=== PATIENT | female | born 1980 | race Caucasian/White ===

== ENCOUNTER → 2016-06-13 | Outpatient (CLI) | payer MEDICAID ==
[~2016-06-13] MED LIST: CHOL20007 PO; LENA5CAP PO; LEV500T PO; NOR5T PO; TRAZ100T2 PO
== END | disposition home or self-care (01) ==
LOC: LAB 11:48
DX: Z00.00 Encounter for general adult medical examination without abnormal findings (principal)
CPT/HCPCS: 81025

== ENCOUNTER → 2016-07-11 | Outpatient (CLI) | payer MEDICAID | END | disposition home or self-care (01) | LOC: LAB 11:00 | DX: Z00.00 Encounter for general adult medical examination without abnormal findings (principal) | CPT/HCPCS: 81025 ==

== ENCOUNTER → 2016-08-08 | Outpatient (CLI) | payer MEDICAID | END | disposition home or self-care (01) | LOC: LAB 08:43 | DX: Z00.00 Encounter for general adult medical examination without abnormal findings (principal) | CPT/HCPCS: 81025 ==

== ENCOUNTER → 2016-09-05 | Outpatient (CLI) | payer MEDICAID | END | disposition home or self-care (01) | LOC: LAB 10:29 | DX: C90.00 Multiple myeloma not having achieved remission (principal) | CPT/HCPCS: 81025 ==

== ENCOUNTER → 2016-10-01 | Outpatient (CLI) | payer MEDICAID | END | disposition home or self-care (01) | LOC: LAB 10:51 | DX: C90.00 Multiple myeloma not having achieved remission (principal) | CPT/HCPCS: 81025 ==

== ENCOUNTER → 2016-10-31 | Outpatient (CLI) | payer MEDICAID ==
[~2016-10-31] MED LIST changes: +HYDR-4663 PO; -NOR5T PO
== END | disposition home or self-care (01) ==
LOC: LAB 10:51
DX: C90.00 Multiple myeloma not having achieved remission (principal)
CPT/HCPCS: 81025

== ENCOUNTER → 2016-11-03 | Outpatient (CLI) | payer MEDICAID ==
[2016-11-03 08:30] LABS: Basophils # (auto) 0 uL; Basophils % (auto) 0.7 % (0.0-2.0); Eosinophils # (auto) 0.4 uL; Eosinophils % (auto) 9.8 % (0.0-7.0); Hematocrit 36.8 % (36.0-46.0); Hemoglobin 12.9 g/dL (12.2-16.2); Lymphocytes # (auto) 1.2 uL; Lymphocytes % (auto) 32.6 % (10.0-50.0); Mean Corpuscular Hemoglobin 30.6 pg (28.0-32.0); Mean Corpuscular Hgb Conc. 34.9 g/dL (32.0-36.0); Mean Corpuscular Volume 87.8 fL (80.0-100.0); Mean Platelet Volume 8.5 fL (7.4-10.4); Monocytes # (auto) 0.4 uL; Monocytes % (auto) 10.8 % (0.0-12.0); Neutrophils # (auto) 1.7 uL; Neutrophils % (auto) 46.1 % (37.0-80.0); Platelet Count (auto) 230 10^3/uL (140-450); Red Cell Distribution Width 14.4 % (11.6-16.0); White Blood Cell 3.8 10^3/uL (4.4-10.8)
[2016-11-03 09:02] LABS: BUN/Creatinine Ratio 18.8; Calcium 9.2 mg/dL (8.5-10.1); Phosphorus 3.4 mg/dL (2.5-4.90)
[2016-11-03 09:06] LABS: Urine Bilirubin Negative (Negative); Urine Color Yellow (Yellow); Urine Glucose TRACE mg/dL (Normal); Urine Ketone Negative (Negative); Urine Nitrite Negative (Negative); Urine Urobilinogen Normal (Negative); Urine pH 5.5 (5.0-8.0)
[2016-11-03 09:26] LABS: Urine Blood 1+ /uL (Negative)
[2016-11-03 10:49] LABS: Urine Protein/Creatinine Ratio 0.78
== END | disposition home or self-care (01) ==
LOC: LAB 08:00
PROVIDERS: ATTEND Internal Medicine
DX: N18.3 Chronic kidney disease, stage 3 (moderate) (principal); D63.1 Anemia in chronic kidney disease; M10.9 Gout, unspecified; R80.9 Proteinuria, unspecified
CPT/HCPCS: 36415; 80061; 80069; 81003; 82306; 82570; 84156; 85025

== ENCOUNTER → 2016-11-28 | Outpatient (CLI) | payer MEDICAID | END | disposition home or self-care (01) | LOC: LAB 10:11 | DX: C90.00 Multiple myeloma not having achieved remission (principal) | CPT/HCPCS: 81025 ==

== ENCOUNTER → 2016-12-26 | Outpatient (CLI) | payer MEDICAID | END | disposition home or self-care (01) | LOC: LAB 09:45 | DX: C90.00 Multiple myeloma not having achieved remission (principal) | CPT/HCPCS: 81025 ==

== ENCOUNTER → 2017-01-23 | Outpatient (CLI) | payer MEDICAID | END | disposition home or self-care (01) | LOC: LAB 10:02 | DX: C90.00 Multiple myeloma not having achieved remission (principal) | CPT/HCPCS: 81025 ==

== ENCOUNTER → 2017-02-20 | Outpatient (CLI) | payer MEDICAID | END | disposition home or self-care (01) | LOC: LAB 11:37 | DX: C90.00 Multiple myeloma not having achieved remission (principal) | CPT/HCPCS: 81025 ==

== ENCOUNTER → 2017-03-20 | Outpatient (CLI) | payer MEDICAID ==
[~2017-03-20] MED LIST changes: -HYDR-4663 PO; +HYDR-4683 PO
== END | disposition home or self-care (01) ==
LOC: LAB 11:11
DX: C90.00 Multiple myeloma not having achieved remission (principal)
CPT/HCPCS: 81025

== ENCOUNTER → 2017-04-20 | Outpatient (CLI) | payer MEDICAID | END | disposition home or self-care (01) | LOC: LAB 10:11 | DX: Z32.00 Encounter for pregnancy test, result unknown (principal); C90.00 Multiple myeloma not having achieved remission | CPT/HCPCS: 81025 ==

== ENCOUNTER → 2017-05-04 | Outpatient (CLI) | payer MEDICAID ==
[2017-05-04 09:05] LABS: Basophils # (auto) 0 uL; Basophils % (auto) 1.1 % (0.0-2.0); Eosinophils # (auto) 0.3 uL; Eosinophils % (auto) 6.5 % (0.0-7.0); Hematocrit 37.9 % (36.0-46.0); Hemoglobin 12.9 g/dL (12.2-16.2); Lymphocytes # (auto) 1.3 uL; Lymphocytes % (auto) 31.9 % (10.0-50.0); Mean Corpuscular Hemoglobin 30.7 pg (28.0-32.0); Mean Corpuscular Volume 90.5 fL (80.0-100.0); Mean Platelet Volume 8.2 fL (6.9-10.8); Monocytes # (auto) 0.2 uL; Monocytes % (auto) 5.5 % (0.0-12.0); Neutrophils # (auto) 2.2 uL; Nucleated Red Blood Cells % 0.1 %; Platelet Count (auto) 214 10^3/uL (140-450)
[2017-05-04 09:17] LABS: Urine Bilirubin Negative (Negative); Urine Blood 1+ /uL (Negative); Urine Color Yellow (Yellow); Urine Glucose 1+ mg/dL (Normal); Urine Ketone Negative (Negative); Urine Mucus FEW (None Seen); Urine Nitrite Negative (Negative); Urine RBC <1 /hpf (0 - 4); Urine Squamous Epithelial Cell FEW /hpf (<5); Urine Urobilinogen Normal (Negative); Urine pH 5.5 (5.0-8.0)
[2017-05-04 09:33] LABS: Urine Protein/Creatinine Ratio 0.97
[2017-05-04 09:34] LABS: Albumin 3.9 g/dL (3.4-5.0); BUN/Creatinine Ratio 18.3; Calcium 9.4 mg/dL (8.5-10.1); Phosphorus 3.6 mg/dL (2.5-4.90); Potassium 3.8 mmol/L (3.5-5.1); Uric Acid 4.7 mg/dL (2.6-6.0)
== END | disposition home or self-care (01) ==
LOC: LAB 08:44
PROVIDERS: ATTEND Internal Medicine
DX: N18.3 Chronic kidney disease, stage 3 (moderate) (principal); D63.1 Anemia in chronic kidney disease; E21.3 Hyperparathyroidism, unspecified; E78.5 Hyperlipidemia, unspecified; M10.9 Gout, unspecified; E55.9 Vitamin D deficiency, unspecified; R80.9 Proteinuria, unspecified
CPT/HCPCS: 36415; 80069; 81001; 82306; 82570; 84156; 84550; 85025

== ENCOUNTER 2017-07-27 12:19 | Emergency (ER) | payer MEDICAID ==
[~2017-07-27] VITALS: Ht 160 cm; Wt 95.3 kg
[2017-07-27 13:07] LABS: Basophils # (auto) 0 uL; Basophils % (auto) 0.6 % (0.0-2.0); Eosinophils # (auto) 0.1 uL; Eosinophils % (auto) 2.6 % (0.0-7.0); Hematocrit 38.8 % (36.0-46.0); Hemoglobin 13.1 g/dL (12.2-16.2); Lymphocytes # (auto) 1.1 uL; Lymphocytes % (auto) 28.2 % (10.0-50.0); Mean Corpuscular Hemoglobin 30.8 pg (28.0-32.0); Mean Corpuscular Hgb Conc. 33.7 g/dL (32.0-36.0); Mean Corpuscular Volume 91.2 fL (80.0-100.0); Monocytes # (auto) 0.7 uL; Monocytes % (auto) 16.9 % (0.0-12.0); Neutrophils # (auto) 2.1 uL; Neutrophils % (auto) 51.7 % (37.0-80.0); Nucleated Red Blood Cells % 0.2 %; Platelet Count (auto) 252 10^3/uL (140-450); Red Blood Cells 4.25 10^6/uL (4.0-5.20)
[2017-07-27 13:23] LABS: Albumin 3.9 g/dL (3.4-5.0); BUN/Creatinine Ratio 17.5; Bilirubin, Total 0.4 mg/dL (0.2-1.0); Potassium 3.6 mmol/L (3.5-5.1); Total Protein 7.7 g/dL (6.4-8.2)
[2017-07-27 15:05] VITALS: BP 144/98
[2017-07-27 16:36] LABS: Urine Bacteria FEW /hpf (None Seen); Urine Blood 1+ /uL (Negative); Urine Specific Gravity 1.019 (1.001-1.035); Urine WBC 4 /hpf (0 - 5)
== END 2017-07-27 16:37 | disposition home or self-care (01) ==
LOC: ER 12:19
DX: C90.00 Multiple myeloma not having achieved remission (principal); D63.8 Anemia in other chronic diseases classified elsewhere
CPT/HCPCS: 36415; 80053; 81001; 85025

== ENCOUNTER → 2022-01-29 | Outpatient (CLI) | payer MEDICAID ==
[~2022-01-29] MED LIST changes: -HYDR-4683 PO; +HYDR-4833 PO; -TRAZ100T2 PO; +TRAZ100T3 PO
[2022-01-29 08:34] LABS: Basophils # (auto) 0 10 ^3/uL (0-0.2); Basophils % (auto) 0.9 % (0.0-2.0); Eosinophils # (auto) 0.4 10 ^3/uL (0-0.8); Hematocrit 39.6 % (36.0-46.0); Hemoglobin 12.9 g/dL (12.2-16.2); Lymphocytes # (auto) 1.4 10 ^3/uL (0.4-5.4); Lymphocytes % (auto) 28.1 % (10.0-50.0); Mean Corpuscular Hemoglobin 29.5 pg (28.0-32.0); Mean Corpuscular Hgb Conc. 32.7 g/dL (32.0-36.0); Mean Corpuscular Volume 90.1 fL (80.0-100.0); Monocytes # (auto) 0.5 10 ^3/uL (0-1.3); Monocytes % (auto) 9.9 % (0.0-12.0); Neutrophils # (auto) 2.8 10 ^3/uL (1.6-8.6); Neutrophils % (auto) 54.1 % (37.0-80.0); Red Blood Cells 4.39 10^6/uL (4.0-5.20); Red Cell Distribution Width 14.8 % (11.8-14.3); White Blood Cell 5.2 10^3/uL (4.4-10.8)
[2022-01-29 09:43] LABS: Albumin 3.7 g/dL (3.4-5.0); Calcium 9.1 mg/dL (8.5-10.1); Potassium 4.3 mmol/L (3.5-5.1)
[2022-01-29 09:49] LABS: BUN/Creatinine Ratio 17.7; Bilirubin, Total 0.9 mg/dL (0.2-1.0); Total Protein 6.5 g/dL (6.4-8.2)
== END | disposition home or self-care (01) ==
LOC: LAB 08:10
PROVIDERS: ATTEND Nurse Practitioner Family
DX: Z00.00 Encounter for general adult medical examination without abnormal findings (principal); E11.9 Type 2 diabetes mellitus without complications; I10 Essential (primary) hypertension
CPT/HCPCS: 36415; 80053; 80061; 83036; 84443; 85025

== ENCOUNTER → 2022-03-11 | Outpatient (CLI) | payer MEDICAID ==
[2022-03-11 13:06] LABS: Basophils # (auto) 0.1 10 ^3/uL (0-0.2); Basophils % (auto) 1.3 % (0.0-2.0); Eosinophils # (auto) 0.2 10 ^3/uL (0-0.8); Eosinophils % (auto) 5.4 % (0.0-7.0); Hematocrit 38.6 % (36.0-46.0); Hemoglobin 12.9 g/dL (12.2-16.2); Lymphocytes # (auto) 1.6 10 ^3/uL (0.4-5.4); Lymphocytes % (auto) 35.3 % (10.0-50.0); Mean Corpuscular Hemoglobin 29.8 pg (28.0-32.0); Mean Corpuscular Hgb Conc. 33.3 g/dL (32.0-36.0); Mean Corpuscular Volume 89.4 fL (80.0-100.0); Monocytes # (auto) 0.7 10 ^3/uL (0-1.3); Monocytes % (auto) 14.2 % (0.0-12.0); Neutrophils % (auto) 43.8 % (37.0-80.0); Nucleated Red Blood Cells % 0.1 %; Red Blood Cells 4.32 10^6/uL (4.0-5.20); White Blood Cell 4.6 10^3/uL (4.4-10.8)
[2022-03-11 13:18] LABS: Urine Bacteria NONE SEEN /hpf (None Seen); Urine Blood 1+ /uL (Negative); Urine Specific Gravity 1.016 (1.001-1.035); Urine WBC 5 /hpf (0 - 5)
[2022-03-11 13:46] LABS: Creatinine, Urine 75.1 mg/dL (30.0-125.0); Protein, Urine 58.7 mg/dL (0.0-11.9)
[2022-03-11 13:47] LABS: Albumin 3.4 g/dL (3.4-5.0); BUN/Creatinine Ratio 15.3; Calcium 8.6 mg/dL (8.5-10.1); Phosphorus 2.6 mg/dL (2.5-4.90); Potassium 3.8 mmol/L (3.5-5.1); Uric Acid 4.3 mg/dL (2.6-6.0)
== END | disposition home or self-care (01) ==
LOC: LAB 12:34
PROVIDERS: ATTEND Internal Medicine
DX: C90.01 Multiple myeloma in remission (principal); N18.31 Chronic kidney disease, stage 3a; D63.1 Anemia in chronic kidney disease; E21.3 Hyperparathyroidism, unspecified; E78.5 Hyperlipidemia, unspecified; M10.9 Gout, unspecified; R80.9 Proteinuria, unspecified; R89.0 Abnormal level of enzymes in specimens from other organs, systems and tissues; R82.90 Unspecified abnormal findings in urine
CPT/HCPCS: 36415; 80069; 81001; 82306; 82570; 83970; 84156; 84550; 84702; 85025

== ENCOUNTER → 2022-03-19 | Outpatient (CLI) | payer MEDICAID | END | disposition home or self-care (01) | LOC: LAB 14:30 | PROVIDERS: ATTEND Internal Medicine | DX: C90.01 Multiple myeloma in remission (principal) | CPT/HCPCS: 36415; 84702 ==

== ENCOUNTER → 2022-03-31 | Outpatient (CLI) | payer MEDICAID | END | disposition home or self-care (01) | LOC: LAB 10:05 | PROVIDERS: ATTEND Internal Medicine | DX: C90.01 Multiple myeloma in remission (principal) | CPT/HCPCS: 36415; 84702 ==

== ENCOUNTER → 2022-04-15 | Outpatient (CLI) | payer MEDICAID ==
[2022-04-15 11:37] LABS: Basophils # (auto) 0.1 10 ^3/uL (0-0.2); Basophils % (auto) 1.1 % (0.0-2.0); Eosinophils # (auto) 0.3 10 ^3/uL (0-0.8); Eosinophils % (auto) 5.5 % (0.0-7.0); Hematocrit 40.9 % (36.0-46.0); Hemoglobin 13.6 g/dL (12.2-16.2); Lymphocytes # (auto) 1.6 10 ^3/uL (0.4-5.4); Lymphocytes % (auto) 29.1 % (10.0-50.0); Mean Corpuscular Hemoglobin 29.5 pg (28.0-32.0); Mean Corpuscular Hgb Conc. 33.1 g/dL (32.0-36.0); Mean Corpuscular Volume 89.2 fL (80.0-100.0); Monocytes # (auto) 0.4 10 ^3/uL (0-1.3); Monocytes % (auto) 7.8 % (0.0-12.0); Neutrophils % (auto) 56.5 % (37.0-80.0); Nucleated Red Blood Cells % 0.1 %; Red Blood Cells 4.59 10^6/uL (4.0-5.20); Red Cell Distribution Width 14.1 % (11.8-14.3); White Blood Cell 5.4 10^3/uL (4.4-10.8)
[2022-04-15 13:51] LABS: Albumin 3.6 g/dL (3.4-5.0); Bilirubin, Total 0.8 mg/dL (0.2-1.0); Calcium 9.4 mg/dL (8.5-10.1); Potassium 3.9 mmol/L (3.5-5.1); Total Protein 7.1 g/dL (6.4-8.2); Uric Acid 5.3 mg/dL (2.6-6.0)
[2022-04-16 07:06] LABS: Immunoglobulin G, Serum 602 mg/dL (586-1602)
== END | disposition home or self-care (01) ==
LOC: LAB 11:17
PROVIDERS: ATTEND Internal Medicine
DX: C90.01 Multiple myeloma in remission (principal)
CPT/HCPCS: 36415; 80053; 82784; 83615; 83883; 84155; 84165; 84550; 85025

== ENCOUNTER → 2022-04-25 | Outpatient (CLI) | payer MEDICAID | END | disposition home or self-care (01) | LOC: LAB 10:24 | PROVIDERS: ATTEND Internal Medicine | DX: C90.01 Multiple myeloma in remission (principal) | CPT/HCPCS: 36415; 84702 ==

== ENCOUNTER → 2022-05-21 | Outpatient (CLI) | payer MEDICAID | END | disposition home or self-care (01) | LOC: LAB 13:04 | PROVIDERS: ATTEND Internal Medicine | DX: C90.01 Multiple myeloma in remission (principal) | CPT/HCPCS: 36415; 84702 ==

== ENCOUNTER → 2022-06-10 | Outpatient (CLI) | payer MEDICAID ==
[2022-06-10 12:30] LABS: Basophils # (auto) 0 10 ^3/uL (0-0.2); Basophils % (auto) 1.1 % (0.0-2.0); Eosinophils # (auto) 0.3 10 ^3/uL (0-0.8); Eosinophils % (auto) 9.1 % (0.0-7.0); Hematocrit 40.4 % (36.0-46.0); Hemoglobin 13.2 g/dL (12.2-16.2); Lymphocytes # (auto) 1.4 10 ^3/uL (0.4-5.4); Lymphocytes % (auto) 37.3 % (10.0-50.0); Mean Corpuscular Hemoglobin 29.1 pg (28.0-32.0); Mean Corpuscular Hgb Conc. 32.8 g/dL (32.0-36.0); Mean Corpuscular Volume 88.7 fL (80.0-100.0); Monocytes # (auto) 0.4 10 ^3/uL (0-1.3); Monocytes % (auto) 11.6 % (0.0-12.0); Neutrophils # (auto) 1.5 10 ^3/uL (1.6-8.6); Neutrophils % (auto) 40.9 % (37.0-80.0); Nucleated Red Blood Cells % 0.1 %; Red Blood Cells 4.55 10^6/uL (4.0-5.20); Red Cell Distribution Width 14.8 % (11.8-14.3); White Blood Cell 3.7 10^3/uL (4.4-10.8)
[2022-06-10 13:06] LABS: Albumin 3.5 g/dL (3.4-5.0); BUN/Creatinine Ratio 17.2; Calcium 9.6 mg/dL (8.5-10.1); Potassium 4.1 mmol/L (3.5-5.1)
[2022-06-10 13:09] LABS: Bilirubin, Total 0.6 mg/dL (0.2-1.0); Total Protein 7.1 g/dL (6.4-8.2)
[2022-06-11 08:06] LABS: Immunoglobulin G, Serum 902 mg/dL (586-1602)
[2022-06-11 21:16] LABS: Uric Acid 5.3 mg/dL (2.6-6.0)
== END | disposition home or self-care (01) ==
LOC: LAB 12:10
PROVIDERS: ATTEND Internal Medicine
DX: C90.01 Multiple myeloma in remission (principal)
CPT/HCPCS: 36415; 80053; 82784; 83615; 83883; 84550; 85025

== ENCOUNTER → 2022-06-30 | Outpatient (CLI) | payer MEDICAID | END | disposition home or self-care (01) | LOC: LAB 09:14 | PROVIDERS: ATTEND Internal Medicine | DX: C90.01 Multiple myeloma in remission (principal) | CPT/HCPCS: 36415; 84702 ==

== ENCOUNTER → 2022-07-07 | Outpatient (CLI) | payer MEDICAID | END | disposition home or self-care (01) | LOC: LAB 09:58 | PROVIDERS: ATTEND Internal Medicine | DX: C90.01 Multiple myeloma in remission (principal) | CPT/HCPCS: 36415; 84702 ==

== ENCOUNTER → 2022-08-01 | Outpatient (CLI) | payer MEDICAID ==
[2022-08-01 10:38] LABS: Basophils # (auto) 0 10 ^3/uL (0-0.2); Basophils % (auto) 0.9 % (0.0-2.0); Eosinophils # (auto) 0.4 10 ^3/uL (0-0.8); Eosinophils % (auto) 9.3 % (0.0-7.0); Hematocrit 38.1 % (36.0-46.0); Hemoglobin 12.7 g/dL (12.2-16.2); Lymphocytes # (auto) 1.1 10 ^3/uL (0.4-5.4); Lymphocytes % (auto) 25.3 % (10.0-50.0); Mean Corpuscular Hemoglobin 29.9 pg (28.0-32.0); Mean Corpuscular Hgb Conc. 33.4 g/dL (32.0-36.0); Mean Corpuscular Volume 89.6 fL (80.0-100.0); Monocytes # (auto) 0.3 10 ^3/uL (0-1.3); Monocytes % (auto) 7.6 % (0.0-12.0); Neutrophils # (auto) 2.4 10 ^3/uL (1.6-8.6); Neutrophils % (auto) 56.9 % (37.0-80.0); Nucleated Red Blood Cells % 0.4 %; Red Blood Cells 4.26 10^6/uL (4.0-5.20); Red Cell Distribution Width 15.7 % (11.8-14.3); White Blood Cell 4.3 10^3/uL (4.4-10.8)
[2022-08-01 12:42] LABS: Albumin 3.4 g/dL (3.4-5.0); BUN/Creatinine Ratio 15.6; Calcium 9.5 mg/dL (8.5-10.1); Potassium 3.9 mmol/L (3.5-5.1)
[2022-08-01 12:47] LABS: Beta HCG, Quantitative 1 mlU/mL (1-3)
[2022-08-01 12:58] LABS: Bilirubin, Total 0.9 mg/dL (0.2-1.0); Total Protein 7.2 g/dL (6.4-8.2)
[2022-08-01 14:59] LABS: Uric Acid 5.1 mg/dL (2.6-6.0)
[2022-08-01 15:50] LABS: Lactate Dehydrogenase 193 U/L (84-246)
[2022-08-02 07:06] LABS: Immunoglobulin G, Serum 942 mg/dL (586-1602)
== END | disposition home or self-care (01) ==
LOC: LAB 10:21
PROVIDERS: ATTEND Internal Medicine
DX: C90.01 Multiple myeloma in remission (principal)
CPT/HCPCS: 36415; 80053; 82784; 83615; 83883; 84155; 84165; 84550; 84702; 85025

== ENCOUNTER → 2022-08-11 | Outpatient (CLI) | payer MEDICAID | END | disposition home or self-care (01) | LOC: LAB 10:38 | PROVIDERS: ATTEND Internal Medicine | DX: C90.01 Multiple myeloma in remission (principal) | CPT/HCPCS: 36415; 84702 ==

== ENCOUNTER → 2022-09-05 | Outpatient (CLI) | payer MEDICAID ==
[2022-09-05 09:07] LABS: Basophils # (auto) 0.1 10 ^3/uL (0-0.2); Eosinophils # (auto) 0.2 10 ^3/uL (0-0.8); Eosinophils % (auto) 3.1 % (0.0-7.0); Hematocrit 38.7 % (36.0-46.0); Hemoglobin 13.2 g/dL (12.2-16.2); Lymphocytes # (auto) 1.9 10 ^3/uL (0.4-5.4); Lymphocytes % (auto) 35.7 % (10.0-50.0); Mean Corpuscular Hemoglobin 30.8 pg (28.0-32.0); Mean Corpuscular Hgb Conc. 34.1 g/dL (32.0-36.0); Mean Corpuscular Volume 90.5 fL (80.0-100.0); Monocytes # (auto) 0.7 10 ^3/uL (0-1.3); Monocytes % (auto) 13.6 % (0.0-12.0); Neutrophils # (auto) 2.4 10 ^3/uL (1.6-8.6); Neutrophils % (auto) 45.6 % (37.0-80.0); Red Blood Cells 4.28 10^6/uL (4.0-5.20); Red Cell Distribution Width 14.9 % (11.8-14.3); White Blood Cell 5.2 10^3/uL (4.4-10.8)
[2022-09-05 09:08] LABS: Urine Bacteria NONE SEEN /hpf (None Seen); Urine Blood 1+ /uL (Negative); Urine Specific Gravity 1.017 (1.001-1.035); Urine WBC 6 /hpf (0 - 5)
[2022-09-05 09:49] LABS: Albumin 3.4 g/dL (3.4-5.0); BUN/Creatinine Ratio 19.6 (10.0-20.0); Calcium 9.6 mg/dL (8.5-10.1); Phosphorus 3.7 mg/dL (2.5-4.90); Potassium 4.4 mmol/L (3.5-5.1); Uric Acid 5.4 mg/dL (2.6-6.0)
[2022-09-05 09:52] LABS: Protein, Urine 65.5 mg/dL (0.0-11.9)
== END | disposition home or self-care (01) ==
LOC: LAB 08:42
PROVIDERS: ATTEND Internal Medicine
DX: N18.31 Chronic kidney disease, stage 3a (principal); D63.1 Anemia in chronic kidney disease; E78.5 Hyperlipidemia, unspecified; E21.3 Hyperparathyroidism, unspecified; M10.9 Gout, unspecified; R80.9 Proteinuria, unspecified; R82.90 Unspecified abnormal findings in urine
CPT/HCPCS: 36415; 80069; 81001; 82306; 82570; 83970; 84156; 84550; 84702; 85025

== ENCOUNTER → 2022-10-13 | Outpatient (CLI) | payer MEDICAID ==
[2022-10-13 12:45] LABS: Basophils # (auto) 0.1 10 ^3/uL (0-0.2); Basophils % (auto) 0.9 % (0.0-2.0); Eosinophils # (auto) 0.3 10 ^3/uL (0-0.8); Eosinophils % (auto) 5.3 % (0.0-7.0); Hematocrit 42.3 % (36.0-46.0); Hemoglobin 14.2 g/dL (12.2-16.2); Lymphocytes # (auto) 2.1 10 ^3/uL (0.4-5.4); Lymphocytes % (auto) 33.6 % (10.0-50.0); Mean Corpuscular Hemoglobin 30.6 pg (28.0-32.0); Mean Corpuscular Hgb Conc. 33.6 g/dL (32.0-36.0); Monocytes # (auto) 0.6 10 ^3/uL (0-1.3); Monocytes % (auto) 8.8 % (0.0-12.0); Neutrophils # (auto) 3.3 10 ^3/uL (1.6-8.6); Neutrophils % (auto) 51.4 % (37.0-80.0); Nucleated Red Blood Cells % 0.1 %; Red Blood Cells 4.65 10^6/uL (4.0-5.20); Red Cell Distribution Width 14.7 % (11.8-14.3); White Blood Cell 6.3 10^3/uL (4.4-10.8)
[2022-10-13 14:20] LABS: Albumin 4.2 g/dL (3.4-5.0); BUN/Creatinine Ratio 13.8 (10.0-20.0); Bilirubin, Total 0.8 mg/dL (0.2-1.0); Calcium 9.6 mg/dL (8.5-10.1); Potassium 3.8 mmol/L (3.5-5.1); Total Protein 8.2 g/dL (6.4-8.2); Uric Acid 5.6 mg/dL (2.6-6.0)
[2022-10-14 08:07] LABS: Immunoglobulin G, Serum 985 mg/dL (586-1602)
== END | disposition home or self-care (01) ==
LOC: LAB 12:18
PROVIDERS: ATTEND Internal Medicine
DX: C90.01 Multiple myeloma in remission (principal)
CPT/HCPCS: 36415; 80053; 82784; 83615; 83883; 84155; 84165; 84550; 85025

== ENCOUNTER → 2022-11-12 | Outpatient (CLI) | payer MEDICAID ==
[~2022-11-12] MED LIST changes: +TRAZ-228 PO; -TRAZ100T3 PO
[2022-11-12 11:13] LABS: Basophils # (auto) 0.1 10 ^3/uL (0-0.2); Basophils % (auto) 1.3 % (0.0-2.0); Eosinophils # (auto) 0.2 10 ^3/uL (0-0.8); Eosinophils % (auto) 3.3 % (0.0-7.0); Hematocrit 38.9 % (36.0-46.0); Lymphocytes # (auto) 1.5 10 ^3/uL (0.4-5.4); Lymphocytes % (auto) 32.4 % (10.0-50.0); Mean Corpuscular Hemoglobin 30.4 pg (28.0-32.0); Mean Corpuscular Hgb Conc. 33.5 g/dL (32.0-36.0); Mean Corpuscular Volume 90.7 fL (80.0-100.0); Monocytes # (auto) 0.4 10 ^3/uL (0-1.3); Monocytes % (auto) 9.7 % (0.0-12.0); Neutrophils # (auto) 2.4 10 ^3/uL (1.6-8.6); Neutrophils % (auto) 53.3 % (37.0-80.0); Nucleated Red Blood Cells % 0.1 %; Red Blood Cells 4.28 10^6/uL (4.0-5.20); Red Cell Distribution Width 14.6 % (11.8-14.3); White Blood Cell 4.5 10^3/uL (4.4-10.8)
[2022-11-12 11:51] LABS: Potassium 3.9 mmol/L (3.5-5.1)
[2022-11-12 11:57] LABS: Albumin 3.5 g/dL (3.4-5.0); BUN/Creatinine Ratio 17.4 (10.0-20.0); Bilirubin, Total 0.6 mg/dL (0.2-1.0); Calcium 8.8 mg/dL (8.5-10.1); Uric Acid 5.6 mg/dL (2.6-6.0)
[2022-11-13 08:06] LABS: Immunoglobulin G, Serum 823 mg/dL (586-1602)
== END | disposition home or self-care (01) ==
LOC: LAB 10:47
PROVIDERS: ATTEND Internal Medicine
DX: C90.01 Multiple myeloma in remission (principal)
CPT/HCPCS: 36415; 80053; 82784; 83615; 83883; 84155; 84165; 84550; 85025

== ENCOUNTER → 2022-11-20 | Outpatient (CLI) | payer MEDICAID | END | disposition home or self-care (01) | LOC: LAB 07:47 | PROVIDERS: ATTEND Internal Medicine | DX: C90.01 Multiple myeloma in remission (principal) | CPT/HCPCS: 36415; 84702 ==

== ENCOUNTER → 2022-12-01 | Outpatient (CLI) | payer MEDICAID | END | disposition home or self-care (01) | LOC: LAB 14:26 | PROVIDERS: ATTEND Internal Medicine | DX: C90.01 Multiple myeloma in remission (principal) | CPT/HCPCS: 36415; 84702 ==

== ENCOUNTER → 2022-12-08 | Outpatient (CLI) | payer MEDICAID ==
[2022-12-08 12:09] LABS: Basophils # (auto) 0.1 10 ^3/uL (0-0.2); Eosinophils # (auto) 0.4 10 ^3/uL (0-0.8); Eosinophils % (auto) 7.7 % (0.0-7.0); Hematocrit 38.5 % (36.0-46.0); Lymphocytes # (auto) 1.6 10 ^3/uL (0.4-5.4); Lymphocytes % (auto) 33.1 % (10.0-50.0); Mean Corpuscular Hemoglobin 30.4 pg (28.0-32.0); Mean Corpuscular Hgb Conc. 33.6 g/dL (32.0-36.0); Mean Corpuscular Volume 90.5 fL (80.0-100.0); Monocytes # (auto) 0.7 10 ^3/uL (0-1.3); Neutrophils # (auto) 2.2 10 ^3/uL (1.6-8.6); Neutrophils % (auto) 43.2 % (37.0-80.0); Nucleated Red Blood Cells % 0.1 %; Red Blood Cells 4.26 10^6/uL (4.0-5.20); Red Cell Distribution Width 14.8 % (11.8-14.3)
[2022-12-08 13:01] LABS: Albumin 3.5 g/dL (3.4-5.0); BUN/Creatinine Ratio 19.5 (10.0-20.0); Calcium 9.2 mg/dL (8.5-10.1); Phosphorus 2.5 mg/dL (2.5-4.90); Potassium 4.4 mmol/L (3.5-5.1); Uric Acid 5.1 mg/dL (2.6-6.0)
[2022-12-08 13:06] LABS: Urine Bacteria FEW /hpf (None Seen); Urine Blood 1+ /uL (Negative); Urine Specific Gravity 1.021 (1.001-1.035); Urine WBC 3 /hpf (0 - 5)
[2022-12-08 13:12] LABS: Protein, Urine 63.7 mg/dL (0.0-11.9)
== END | disposition home or self-care (01) ==
LOC: LAB 11:52
PROVIDERS: ATTEND Internal Medicine
DX: N18.4 Chronic kidney disease, stage 4 (severe) (principal); E78.5 Hyperlipidemia, unspecified; M10.9 Gout, unspecified; R80.9 Proteinuria, unspecified; R82.90 Unspecified abnormal findings in urine; E21.3 Hyperparathyroidism, unspecified; D63.1 Anemia in chronic kidney disease
CPT/HCPCS: 36415; 80069; 81001; 82306; 82570; 83970; 84156; 84550; 85025

== ENCOUNTER → 2022-12-25 | Outpatient (CLI) | payer MEDICAID ==
[2022-12-25 09:08] LABS: Basophils # (auto) 0 10 ^3/uL (0-0.2); Basophils % (auto) 0.5 % (0.0-2.0); Eosinophils # (auto) 0.1 10 ^3/uL (0-0.8); Eosinophils % (auto) 2.6 % (0.0-7.0); Hematocrit 38.6 % (36.0-46.0); Hemoglobin 12.9 g/dL (12.2-16.2); Lymphocytes # (auto) 1.6 10 ^3/uL (0.4-5.4); Lymphocytes % (auto) 33.5 % (10.0-50.0); Mean Corpuscular Hemoglobin 30.3 pg (28.0-32.0); Mean Corpuscular Hgb Conc. 33.4 g/dL (32.0-36.0); Mean Corpuscular Volume 90.7 fL (80.0-100.0); Monocytes # (auto) 0.6 10 ^3/uL (0-1.3); Monocytes % (auto) 11.8 % (0.0-12.0); Neutrophils # (auto) 2.4 10 ^3/uL (1.6-8.6); Neutrophils % (auto) 51.6 % (37.0-80.0); Nucleated Red Blood Cells % 0.1 %; Red Blood Cells 4.26 10^6/uL (4.0-5.20); Red Cell Distribution Width 14.6 % (11.8-14.3); White Blood Cell 4.7 10^3/uL (4.4-10.8)
[2022-12-25 10:07] LABS: Beta HCG, Quantitative 1 mlU/mL (1-3); Lactate Dehydrogenase 162 U/L (84-246)
[2022-12-25 10:12] LABS: Albumin 3.5 g/dL (3.4-5.0); Calcium 8.6 mg/dL (8.5-10.1); Magnesium 1.9 mg/dL (1.6-2.6); Potassium 3.7 mmol/L (3.5-5.1)
[2022-12-25 10:16] LABS: BUN/Creatinine Ratio 18.4 (10.0-20.0); Bilirubin, Total 0.5 mg/dL (0.2-1.0); Total Protein 7.1 g/dL (6.4-8.2)
== END | disposition home or self-care (01) ==
LOC: LAB 08:44
PROVIDERS: ATTEND Internal Medicine
DX: C90.01 Multiple myeloma in remission (principal)
CPT/HCPCS: 36415; 80053; 82306; 82728; 83540; 83615; 83735; 84702; 85025

== ENCOUNTER → 2023-01-23 | Outpatient (CLI) | payer MEDICAID ==
[2023-01-23 08:02] LABS: Basophils # (auto) 0 10 ^3/uL (0-0.2); Eosinophils # (auto) 0.4 10 ^3/uL (0-0.8); Eosinophils % (auto) 9.9 % (0.0-7.0); Hematocrit 36.1 % (36.0-46.0); Hemoglobin 12.2 g/dL (12.2-16.2); Lymphocytes # (auto) 1.3 10 ^3/uL (0.4-5.4); Lymphocytes % (auto) 32.8 % (10.0-50.0); Mean Corpuscular Hemoglobin 30.4 pg (28.0-32.0); Mean Corpuscular Hgb Conc. 33.8 g/dL (32.0-36.0); Mean Corpuscular Volume 89.8 fL (80.0-100.0); Monocytes # (auto) 0.2 10 ^3/uL (0-1.3); Monocytes % (auto) 5.5 % (0.0-12.0); Neutrophils % (auto) 50.8 % (37.0-80.0); Nucleated Red Blood Cells % 0.1 %; Red Blood Cells 4.02 10^6/uL (4.0-5.20); Red Cell Distribution Width 14.9 % (11.8-14.3)
[2023-01-23 10:01] LABS: Alanine Aminotransferase 37 U/L (7-40); Alkaline Phosphatase 123 U/L (46-116); Anion Gap 11.9 (5-15); Aspartate Aminotransferase 19 U/L (13-40); BUN/Creatinine Ratio 11.6 (10.0-20.0); Blood Urea Nitrogen 22 mg/dL (9-23); Calcium 8.5 mg/dL (8.5-10.1); Carbon Dioxide 19.1 mmol/L (20-30); Chloride 109 mmol/L (98-107); Cholesterol 133 mg/dL (< 200); Glucose 195 mg/dL (74-106); HDL Cholesterol 47 mg/dL (40-59); LDL Cholesterol 72 mg/dL (< 100); Potassium 3.5 mmol/L (3.5-5.1); Sodium 140 mmol/L (136-145); Triglycerides 167 mg/dL (< 150)
[2023-01-23 10:02] LABS: Bilirubin, Total 0.7 mg/dL (0.2-1.0); Total Protein 6.6 g/dL (5.7-8.2)
[2023-01-23 10:03] LABS: Albumin 4.1 g/dL (3.2-4.8); Creatinine, Urine 69.44 mg/dL (30.0-125.0)
== END | disposition home or self-care (01) ==
LOC: LAB 07:41
PROVIDERS: ATTEND Nurse Practitioner Family
DX: Z00.01 Encounter for general adult medical examination with abnormal findings (principal); E66.01 Morbid (severe) obesity due to excess calories; E11.65 Type 2 diabetes mellitus with hyperglycemia; I10 Essential (primary) hypertension; E55.9 Vitamin D deficiency, unspecified
CPT/HCPCS: 36415; 80053; 80061; 82043; 82306; 82570; 83036; 84439; 84443; 85025

== ENCOUNTER → 2023-01-28 | Outpatient (CLI) | payer MEDICAID ==
[2023-01-28 09:47] LABS: Basophils # (auto) 0 10 ^3/uL (0-0.2); Basophils % (auto) 0.8 % (0.0-2.0); Eosinophils # (auto) 0.4 10 ^3/uL (0-0.8); Eosinophils % (auto) 7.7 % (0.0-7.0); Hematocrit 37.9 % (36.0-46.0); Hemoglobin 12.9 g/dL (12.2-16.2); Lymphocytes # (auto) 1.4 10 ^3/uL (0.4-5.4); Lymphocytes % (auto) 27.9 % (10.0-50.0); Mean Corpuscular Hemoglobin 30.4 pg (28.0-32.0); Mean Corpuscular Volume 89.2 fL (80.0-100.0); Monocytes # (auto) 0.4 10 ^3/uL (0-1.3); Monocytes % (auto) 8.5 % (0.0-12.0); Neutrophils # (auto) 2.7 10 ^3/uL (1.6-8.6); Neutrophils % (auto) 55.1 % (37.0-80.0); Red Blood Cells 4.25 10^6/uL (4.0-5.20); Red Cell Distribution Width 14.7 % (11.8-14.3)
[2023-01-28 10:43] LABS: Alanine Aminotransferase 37 U/L (7-40); Albumin 4.2 g/dL (3.2-4.8); Alkaline Phosphatase 109 U/L (46-116); Anion Gap 10.3 (5-15); Aspartate Aminotransferase 16 U/L (13-40); BUN/Creatinine Ratio 12.6 (10.0-20.0); Blood Urea Nitrogen 24 mg/dL (9-23); Calcium 9.4 mg/dL (8.5-10.1); Carbon Dioxide 22.7 mmol/L (20-30); Chloride 107 mmol/L (98-107); Glucose 217 mg/dL (74-106); Magnesium 1.6 mg/dL (1.6-2.6); Potassium 3.5 mmol/L (3.5-5.1); Sodium 140 mmol/L (136-145)
[2023-01-28 10:44] LABS: Bilirubin, Total 0.8 mg/dL (0.2-1.0); Phosphorus 3.3 mg/dL (2.4-5.1); Total Protein 6.7 g/dL (5.7-8.2)
== END | disposition home or self-care (01) ==
LOC: LAB 09:00
PROVIDERS: ATTEND Internal Medicine Endocrinology, Diabetes & Metabolism
DX: E11.9 Type 2 diabetes mellitus without complications (principal); R79.9 Abnormal finding of blood chemistry, unspecified
CPT/HCPCS: 36415; 80053; 82306; 83036; 83735; 83970; 84100; 84439; 84443; 85025

== ENCOUNTER → 2023-03-06 | Outpatient (CLI) | payer MEDICAID | END | disposition home or self-care (01) | LOC: LAB 09:22 | PROVIDERS: ATTEND Internal Medicine | DX: C90.01 Multiple myeloma in remission (principal) | CPT/HCPCS: 36415; 84702 ==

== ENCOUNTER → 2023-04-02 | Outpatient (CLI) | payer MEDICAID ==
[2023-04-02 11:37] LABS: Basophils # (auto) 0 10 ^3/uL (0-0.2); Basophils % (auto) 0.5 % (0.0-2.0); Eosinophils # (auto) 0.4 10 ^3/uL (0-0.8); Eosinophils % (auto) 5.6 % (0.0-7.0); Hematocrit 37.5 % (36.0-46.0); Hemoglobin 12.7 g/dL (12.2-16.2); Lymphocytes # (auto) 1.6 10 ^3/uL (0.4-5.4); Lymphocytes % (auto) 24.7 % (10.0-50.0); Mean Corpuscular Hemoglobin 30.3 pg (28.0-32.0); Mean Corpuscular Volume 89.3 fL (80.0-100.0); Monocytes # (auto) 0.7 10 ^3/uL (0-1.3); Monocytes % (auto) 10.9 % (0.0-12.0); Neutrophils # (auto) 3.7 10 ^3/uL (1.6-8.6); Neutrophils % (auto) 58.3 % (37.0-80.0); Nucleated Red Blood Cells % 0.1 %; Red Cell Distribution Width 15.2 % (11.8-14.3); White Blood Cell 6.4 10^3/uL (4.4-10.8)
[2023-04-02 11:54] LABS: Alanine Aminotransferase 40 U/L (7-40); Albumin 4.4 g/dL (3.2-4.8); Alkaline Phosphatase 147 U/L (46-116); Anion Gap 11 (5-15); Aspartate Aminotransferase 18 U/L (13-40); BUN/Creatinine Ratio 13.6 (10.0-20.0); Bilirubin, Total 0.7 mg/dL (0.2-1.0); Blood Urea Nitrogen 30 mg/dL (9-23); Calcium 9.7 mg/dL (8.5-10.1); Carbon Dioxide 22 mmol/L (20-30); Chloride 104 mmol/L (98-107); Glucose 329 mg/dL (74-106); Potassium 3.7 mmol/L (3.5-5.1); Sodium 137 mmol/L (136-145); Total Protein 6.9 g/dL (5.7-8.2)
[2023-04-04 21:06] LABS: Beta-2-Microglobulin 3.6 mg/L (0.6-2.4)
== END | disposition home or self-care (01) ==
LOC: LAB 11:00
PROVIDERS: ATTEND Internal Medicine
DX: C90.01 Multiple myeloma in remission (principal)
CPT/HCPCS: 36415; 80053; 82232; 82784; 83883; 84702; 85025

== ENCOUNTER → 2023-04-14 | Outpatient (CLI) | payer MEDICAID | END | disposition home or self-care (01) | LOC: LAB 14:48 | PROVIDERS: ATTEND Internal Medicine | DX: C90.01 Multiple myeloma in remission (principal) | CPT/HCPCS: 36415; 84702 ==

== ENCOUNTER → 2023-04-21 | Outpatient (CLI) | payer MEDICAID ==
[2023-04-21 08:20] LABS: Basophils # (auto) 0 10 ^3/uL (0-0.2); Basophils % (auto) 0.7 % (0.0-2.0); Eosinophils # (auto) 0.4 10 ^3/uL (0-0.8); Eosinophils % (auto) 7.1 % (0.0-7.0); Hemoglobin 11.8 g/dL (12.2-16.2); Lymphocytes # (auto) 1.5 10 ^3/uL (0.4-5.4); Lymphocytes % (auto) 28.4 % (10.0-50.0); Mean Corpuscular Hemoglobin 30.6 pg (28.0-32.0); Mean Corpuscular Hgb Conc. 33.7 g/dL (32.0-36.0); Mean Corpuscular Volume 90.6 fL (80.0-100.0); Monocytes # (auto) 0.3 10 ^3/uL (0-1.3); Monocytes % (auto) 6.7 % (0.0-12.0); Neutrophils # (auto) 2.9 10 ^3/uL (1.6-8.6); Neutrophils % (auto) 57.1 % (37.0-80.0); Nucleated Red Blood Cells % 0.1 %; Red Blood Cells 3.87 10^6/uL (4.0-5.20); Red Cell Distribution Width 15.2 % (11.8-14.3); White Blood Cell 5.1 10^3/uL (4.4-10.8)
[2023-04-21 08:53] LABS: Alanine Aminotransferase 38 U/L (7-40); Albumin 4.2 g/dL (3.2-4.8); Alkaline Phosphatase 134 U/L (46-116); Anion Gap 9 (5-15); Aspartate Aminotransferase 15 U/L (13-40); BUN/Creatinine Ratio 15.7 (10.0-20.0); Bilirubin, Total 0.7 mg/dL (0.2-1.0); Blood Urea Nitrogen 34 mg/dL (9-23); Calcium 9.6 mg/dL (8.5-10.1); Carbon Dioxide 22 mmol/L (20-30); Chloride 106 mmol/L (98-107); Glucose 359 mg/dL (74-106); Potassium 4.7 mmol/L (3.5-5.1); Sodium 137 mmol/L (136-145); Total Protein 6.2 g/dL (5.7-8.2)
== END | disposition home or self-care (01) ==
LOC: LAB 07:45
PROVIDERS: ATTEND Internal Medicine
DX: C90.01 Multiple myeloma in remission (principal)
CPT/HCPCS: 36415; 80053; 83615; 85025

== ENCOUNTER → 2023-04-27 | Outpatient (CLI) | payer MEDICAID ==
[2023-04-27 08:16] LABS: Basophils # (auto) 0 10 ^3/uL (0-0.2); Basophils % (auto) 0.7 % (0.0-2.0); Eosinophils # (auto) 0.2 10 ^3/uL (0-0.8); Eosinophils % (auto) 5.1 % (0.0-7.0); Hematocrit 35.5 % (36.0-46.0); Hemoglobin 11.7 g/dL (12.2-16.2); Lymphocytes # (auto) 1.4 10 ^3/uL (0.4-5.4); Lymphocytes % (auto) 33.3 % (10.0-50.0); Mean Corpuscular Hemoglobin 29.9 pg (28.0-32.0); Mean Corpuscular Volume 90.4 fL (80.0-100.0); Monocytes # (auto) 0.5 10 ^3/uL (0-1.3); Monocytes % (auto) 11.1 % (0.0-12.0); Neutrophils # (auto) 2.1 10 ^3/uL (1.6-8.6); Neutrophils % (auto) 49.8 % (37.0-80.0); Nucleated Red Blood Cells % 0.1 %; Red Blood Cells 3.93 10^6/uL (4.0-5.20); Red Cell Distribution Width 15.2 % (11.8-14.3); White Blood Cell 4.3 10^3/uL (4.4-10.8)
[2023-04-27 08:28] LABS: Potassium 3.8 mmol/L (3.5-5.1)
[2023-04-27 08:29] LABS: Urine Bacteria FEW /hpf (None Seen); Urine Blood 2+ /uL (Negative); Urine Clarity Clear (Clear); Urine Color Straw (Yellow); Urine Protein, UAD 1+ (Negative); Urine Specific Gravity 1.011 (1.001-1.035); Urine Urobilinogen Normal (Negative); Urine WBC 3 /hpf (0 - 5); Urine pH 5.5 (5.0-8.0)
[2023-04-27 08:34] LABS: BUN/Creatinine Ratio 13.4 (10.0-20.0)
[2023-04-27 08:35] LABS: Albumin 4.1 g/dL (3.2-4.8)
[2023-04-27 09:02] LABS: Uric Acid 5.2 mg/dL (3.1-7.8)
[2023-04-27 09:15] LABS: Creatinine, Urine 73.75 mg/dL (30.0-125.0); Urine Protein/Creatinine Ratio 1.13
== END | disposition home or self-care (01) ==
LOC: LAB 07:57
PROVIDERS: ATTEND Internal Medicine
DX: N18.4 Chronic kidney disease, stage 4 (severe) (principal); D63.1 Anemia in chronic kidney disease; R82.90 Unspecified abnormal findings in urine; R80.9 Proteinuria, unspecified; E21.3 Hyperparathyroidism, unspecified; E78.5 Hyperlipidemia, unspecified; M10.9 Gout, unspecified
CPT/HCPCS: 36415; 80069; 81001; 82306; 82570; 83970; 84156; 84550; 85025

== ENCOUNTER → 2023-05-15 | Outpatient (CLI) | payer MEDICAID | END | disposition home or self-care (01) | LOC: LAB 07:59 | PROVIDERS: ATTEND Internal Medicine | DX: C90.01 Multiple myeloma in remission (principal) | CPT/HCPCS: 36415; 84702 ==

== ENCOUNTER → 2023-06-18 | Outpatient (CLI) | payer MEDICAID | END | disposition home or self-care (01) | LOC: LAB 06:52 | PROVIDERS: ATTEND Internal Medicine | DX: C90.01 Multiple myeloma in remission (principal) | CPT/HCPCS: 36415; 84702 ==

== ENCOUNTER → 2023-07-01 | Outpatient (CLI) | payer MEDICAID ==
[2023-07-01 08:41] LABS: Basophils # (auto) 0.1 10 ^3/uL (0-0.2); Basophils % (auto) 1.2 % (0.0-2.0); Eosinophils # (auto) 0.3 10 ^3/uL (0-0.8); Hematocrit 36.8 % (36.0-46.0); Hemoglobin 12.1 g/dL (12.2-16.2); Lymphocytes # (auto) 1.6 10 ^3/uL (0.4-5.4); Lymphocytes % (auto) 32.3 % (10.0-50.0); Mean Corpuscular Hemoglobin 29.6 pg (28.0-32.0); Mean Corpuscular Hgb Conc. 32.9 g/dL (32.0-36.0); Monocytes # (auto) 0.7 10 ^3/uL (0-1.3); Monocytes % (auto) 13.2 % (0.0-12.0); Neutrophils # (auto) 2.4 10 ^3/uL (1.6-8.6); Neutrophils % (auto) 48.3 % (37.0-80.0); Nucleated Red Blood Cells % 0.1 %; Red Blood Cells 4.09 10^6/uL (4.0-5.20); Red Cell Distribution Width 14.6 % (11.8-14.3)
[2023-07-01 09:02] LABS: Alanine Aminotransferase 34 U/L (7-40); Albumin 4.4 g/dL (3.2-4.8); Alkaline Phosphatase 140 U/L (46-116); Anion Gap 10 (5-15); Aspartate Aminotransferase 17 U/L (13-40); BUN/Creatinine Ratio 12.9 (10.0-20.0); Bilirubin, Total 0.9 mg/dL (0.2-1.0); Blood Urea Nitrogen 30 mg/dL (9-23); Calcium 9.9 mg/dL (8.5-10.1); Carbon Dioxide 22 mmol/L (20-30); Chloride 106 mmol/L (98-107); Glucose 217 mg/dL (74-106); Potassium 3.5 mmol/L (3.5-5.1); Sodium 138 mmol/L (136-145)
[2023-07-01 09:03] LABS: Total Protein 6.8 g/dL (5.7-8.2)
[2023-07-02 08:07] LABS: Immunoglobulin A 291 mg/dL (87-352); Immunoglobulin G, Serum 671 mg/dL (586-1602); Immunoglobulin M 39 mg/dL (26-217)
[2023-07-02 12:07] LABS: Kappa Lite Chain Free Serum 72.7 mg/L (3.3-19.4)
[2023-07-03 05:08] LABS: Albumin 3.2 g/dL (2.9-4.4); Alpha-1-Globulin 0.2 g/dL (0.0-0.4); Gamma Globulin 0.8 g/dL (0.4-1.8); Globulin Total 3.1 g/dL (2.2-3.9); Protein Total Serum 6.3 g/dL (6.0-8.5)
== END | disposition home or self-care (01) ==
LOC: LAB 08:19
PROVIDERS: ATTEND Physician Assistant
DX: E11.9 Type 2 diabetes mellitus without complications (principal); C90.01 Multiple myeloma in remission
CPT/HCPCS: 36415; 80053; 82232; 82784; 83036; 83883; 84155; 84165; 84443; 85025

== ENCOUNTER → 2023-07-20 | Outpatient (CLI) | payer MEDICAID ==
[~2023-07-20] MED LIST changes: +AUG875T PO; +METH4PAK PO
== END | disposition home or self-care (01) ==
LOC: LAB 11:00
PROVIDERS: ATTEND Physician Assistant
DX: C90.01 Multiple myeloma in remission (principal)
CPT/HCPCS: 36415; 84702

== ENCOUNTER → 2023-08-04 | Outpatient (CLI) | payer MEDICAID ==
[~2023-08-04] MED LIST changes: -AUG875T PO; -METH4PAK PO
[2023-08-04 10:31] LABS: Basophils # (auto) 0 10 ^3/uL (0-0.2); Basophils % (auto) 0.8 % (0.0-2.0); Eosinophils # (auto) 0.2 10 ^3/uL (0-0.8); Eosinophils % (auto) 4.2 % (0.0-7.0); Hematocrit 32.2 % (36.0-46.0); Hemoglobin 10.8 g/dL (12.2-16.2); Lymphocytes # (auto) 1.5 10 ^3/uL (0.4-5.4); Lymphocytes % (auto) 29.2 % (10.0-50.0); Mean Corpuscular Hgb Conc. 33.4 g/dL (32.0-36.0); Mean Corpuscular Volume 89.9 fL (80.0-100.0); Monocytes # (auto) 0.5 10 ^3/uL (0-1.3); Monocytes % (auto) 9.8 % (0.0-12.0); Neutrophils # (auto) 2.9 10 ^3/uL (1.6-8.6); Red Blood Cells 3.58 10^6/uL (4.0-5.20); Red Cell Distribution Width 14.8 % (11.8-14.3); White Blood Cell 5.2 10^3/uL (4.4-10.8)
[2023-08-04 10:46] LABS: Potassium 4.2 mmol/L (3.5-5.1)
[2023-08-04 10:47] LABS: Calcium 9.3 mg/dL (8.5-10.1)
[2023-08-04 10:49] LABS: Urine Bacteria FEW /hpf (None Seen); Urine Blood 2+ /uL (Negative); Urine Clarity HAZY (Clear); Urine Color Colorless (Yellow); Urine Protein, UAD 2+ (Negative); Urine Specific Gravity 1.013 (1.001-1.035); Urine Urobilinogen Normal (Negative); Urine WBC 3 /hpf (0 - 5)
[2023-08-04 10:52] LABS: BUN/Creatinine Ratio 12.7 (10.0-20.0)
[2023-08-04 10:53] LABS: Albumin 4.3 g/dL (3.2-4.8)
[2023-08-04 10:54] LABS: Phosphorus 3.9 mg/dL (2.4-5.1)
[2023-08-04 11:00] LABS: Protein, Urine 123.6 mg/dL (0.0-11.9)
[2023-08-04 11:02] LABS: Creatinine, Urine 80.4 mg/dL (30.0-125.0); Urine Protein/Creatinine Ratio 1.54
[2023-08-04 11:17] LABS: Uric Acid 5.6 mg/dL (3.1-7.8)
== END | disposition home or self-care (01) ==
LOC: LAB 10:11
PROVIDERS: ATTEND Internal Medicine
DX: N18.31 Chronic kidney disease, stage 3a (principal); R80.9 Proteinuria, unspecified; R82.90 Unspecified abnormal findings in urine; M10.9 Gout, unspecified; D63.1 Anemia in chronic kidney disease; E21.3 Hyperparathyroidism, unspecified; E78.5 Hyperlipidemia, unspecified
CPT/HCPCS: 36415; 80069; 81001; 82306; 82570; 83970; 84156; 84550; 85025

== ENCOUNTER 2023-09-20 11:19 | Emergency (ER) | payer MEDICAID ==
[~2023-09-20] VITALS: Ht 160 cm; Wt 100.0 kg
[2023-09-20 12:59] VITALS: BP 155/78; PULSE 91; RESP 16; TEMP 97.9; O2SAT 97
[2023-09-20] MEDS ORDERED: METH4PAK PO (15:49)
[2023-09-20] MEDS ORDERED: AUG875T PO (15:49)
[2023-09-20] MEDS: cefTRIAXone SOD 1,000 MG VL IM ONE (15:59)
== END 2023-09-20 16:05 | disposition home or self-care (01) ==
LOC: ER 11:19
DX: M27.9 Disease of jaws, unspecified (principal)
CPT/HCPCS: 70486; 96372; 99285; J0696

== ENCOUNTER → 2023-09-22 | Outpatient (CLI) | payer MEDICAID ==
[~2023-09-22] MED LIST changes: +AUG875T PO; +METH4PAK PO
== END | disposition home or self-care (01) ==
LOC: XYW 09:56
PROVIDERS: ATTEND Nurse Practitioner Family
DX: I51.89 Other ill-defined heart diseases (principal); M79.89 Other specified soft tissue disorders; R60.0 Localized edema
CPT/HCPCS: 93306

== ENCOUNTER → 2023-10-14 | Outpatient (CLI) | payer MEDICAID ==
[2023-10-14 11:42] LABS: Hematocrit 31.4 % (36.0-46.0); Hemoglobin 11.4 g/dL (12.2-16.2); Mean Corpuscular Hemoglobin 32.6 pg (28.0-32.0); Mean Corpuscular Hgb Conc. 36.4 g/dL (32.0-36.0); Mean Corpuscular Volume 89.6 fL (80.0-100.0); Red Blood Cells 3.51 10^6/uL (4.0-5.20); Red Cell Distribution Width 14.9 % (11.8-14.3); White Blood Cell 3.9 10^3/uL (4.4-10.8)
[2023-10-14 12:06] LABS: Basophils % (manual) 0 (0.0-2.0); Blast Cells 0; Metamyelocytes % 0; Myelocytes % 0; Promyelocytes % 0; Reactive Lymphocytes 0
[2023-10-14 12:27] LABS: Alanine Aminotransferase 33 U/L (7-40); Albumin 4.3 g/dL (3.2-4.8); Alkaline Phosphatase 121 U/L (46-116); Anion Gap 9 (5-15); Aspartate Aminotransferase 13 U/L (13-40); BUN/Creatinine Ratio 15.7 (10.0-20.0); Bilirubin, Total 0.5 mg/dL (0.2-1.0); Blood Urea Nitrogen 36 mg/dL (9-23); Calcium 9.4 mg/dL (8.5-10.1); Carbon Dioxide 21 mmol/L (20-30); Chloride 109 mmol/L (98-107); Glucose 223 mg/dL (74-106); Potassium 3.8 mmol/L (3.5-5.1); Sodium 139 mmol/L (136-145); Total Protein 6.4 g/dL (5.7-8.2)
[2023-10-14 12:38] LABS: Anisocytosis Slight; Band Neutrophils % (manual) 2; Eosinophils % (manual) 18 (0-7); Lymphocytes % (manual) 38 (10.0-50.0); Monocytes % (manual) 8 (0-12); Platelet Estimate Adequate
[2023-10-15 08:06] LABS: Immunoglobulin A 168 mg/dL (87-352); Immunoglobulin G, Serum 593 mg/dL (586-1602); Immunoglobulin M 12 mg/dL (26-217)
[2023-10-15 13:07] LABS: Albumin 3.2 g/dL (2.9-4.4); Alpha-1-Globulin 0.2 g/dL (0.0-0.4); Alpha-2-Globulin 0.9 g/dL (0.4-1.0); Gamma Globulin 0.4 g/dL (0.4-1.8); Globulin Total 2.7 g/dL (2.2-3.9); Protein Total Serum 5.9 g/dL (6.0-8.5)
[2023-10-15 14:07] LABS: Kappa Lite Chain Free Serum 40.1 mg/L (3.3-19.4)
[2023-10-16 15:07] LABS: Beta-2-Microglobulin 3.8 mg/L (0.6-2.4)
== END | disposition home or self-care (01) ==
LOC: LAB 11:16
PROVIDERS: ATTEND Internal Medicine
DX: C90.01 Multiple myeloma in remission (principal)
CPT/HCPCS: 36415; 80053; 82232; 82784; 83521; 84155; 84165; 84702; 85007; 85027

== ENCOUNTER → 2023-11-03 | Outpatient (CLI) | payer MEDICAID ==
[2023-11-03 09:51] LABS: Basophils # (auto) 0.1 10 ^3/uL (0-0.2); Basophils % (auto) 1.9 % (0.0-2.0); Eosinophils # (auto) 0.3 10 ^3/uL (0-0.8); Eosinophils % (auto) 5.7 % (0.0-7.0); Hematocrit 33.3 % (36.0-46.0); Hemoglobin 11.3 g/dL (12.2-16.2); Lymphocytes # (auto) 1.6 10 ^3/uL (0.4-5.4); Lymphocytes % (auto) 35.8 % (10.0-50.0); Mean Corpuscular Hemoglobin 30.4 pg (28.0-32.0); Mean Corpuscular Volume 89.3 fL (80.0-100.0); Monocytes # (auto) 0.7 10 ^3/uL (0-1.3); Monocytes % (auto) 14.3 % (0.0-12.0); Neutrophils # (auto) 1.9 10 ^3/uL (1.6-8.6); Neutrophils % (auto) 42.3 % (37.0-80.0); Nucleated Red Blood Cells % 0.1 %; Red Blood Cells 3.73 10^6/uL (4.0-5.20); White Blood Cell 4.6 10^3/uL (4.4-10.8)
[2023-11-03 10:25] LABS: Alanine Aminotransferase 22 U/L (7-40); Albumin 4.3 g/dL (3.2-4.8); Alkaline Phosphatase 116 U/L (46-116); Anion Gap 6 (5-15); Aspartate Aminotransferase 9 U/L (13-40); BUN/Creatinine Ratio 14.1 (10.0-20.0); Bilirubin, Total 0.6 mg/dL (0.2-1.0); Blood Urea Nitrogen 30 mg/dL (9-23); Calcium 9.5 mg/dL (8.5-10.1); Carbon Dioxide 24 mmol/L (20-30); Chloride 111 mmol/L (98-107); Cholesterol 144 mg/dL (< 200); Glucose 121 mg/dL (74-106); HDL Cholesterol 50 mg/dL (40-59); LDL Cholesterol 78 mg/dL (< 100); Potassium 4.3 mmol/L (3.5-5.1); Sodium 141 mmol/L (136-145); Total Protein 6.4 g/dL (5.7-8.2); Triglycerides 98 mg/dL (< 150)
== END | disposition home or self-care (01) ==
LOC: LAB 09:37
PROVIDERS: ATTEND Internal Medicine Endocrinology, Diabetes & Metabolism
DX: E11.9 Type 2 diabetes mellitus without complications (principal)
CPT/HCPCS: 36415; 80053; 80061; 83036; 84443; 85025

== ENCOUNTER → 2023-11-23 | Outpatient (CLI) | payer MEDICAID | END | disposition home or self-care (01) | LOC: LAB 10:04 | PROVIDERS: ATTEND Internal Medicine | DX: C90.01 Multiple myeloma in remission (principal) | CPT/HCPCS: 36415; 84702 ==

== ENCOUNTER → 2023-12-07 | Outpatient (CLI) | payer MEDICAID ==
[2023-12-07 09:27] LABS: Urine Bacteria FEW /hpf (None Seen); Urine Blood 2+ /uL (Negative); Urine Color Light-Yellow (Yellow); Urine Mucus FEW (None Seen); Urine Protein, UAD 1+ (Negative); Urine Specific Gravity 1.015 (1.001-1.035); Urine Urobilinogen Normal (Negative); Urine WBC 16 /hpf (0 - 5); Urine pH 5.5 (5.0-9.0)
[2023-12-07 09:29] LABS: Urine Clarity Hazy (Clear)
[2023-12-07 09:36] LABS: Potassium 4.2 mmol/L (3.5-5.1)
[2023-12-07 09:37] LABS: Calcium 9.1 mg/dL (8.7-10.4)
[2023-12-07 09:41] LABS: Creatinine, Urine 94.83 mg/dL (30.0-125.0)
[2023-12-07 09:42] LABS: BUN/Creatinine Ratio 13.5 (10.0-20.0)
[2023-12-07 09:44] LABS: Albumin 4.2 g/dL (3.2-4.8); Phosphorus 4.2 mg/dL (2.4-5.1)
[2023-12-07 10:31] LABS: Uric Acid 5.9 mg/dL (3.1-7.8)
[2023-12-07 11:00] LABS: Basophils # (auto) 0 10 ^3/uL (0-0.2); Basophils % (auto) 0.8 % (0.0-2.0); Eosinophils # (auto) 0.3 10 ^3/uL (0-0.8); Eosinophils % (auto) 5.5 % (0.0-7.0); Hematocrit 34.1 % (36.0-46.0); Hemoglobin 11.9 g/dL (12.2-16.2); Lymphocytes # (auto) 1.9 10 ^3/uL (0.4-5.4); Lymphocytes % (auto) 34.9 % (10.0-50.0); Mean Corpuscular Hemoglobin 31.1 pg (28.0-32.0); Mean Corpuscular Hgb Conc. 34.9 g/dL (32.0-36.0); Mean Corpuscular Volume 89.1 fL (80.0-100.0); Monocytes # (auto) 0.8 10 ^3/uL (0-1.3); Monocytes % (auto) 14.2 % (0.0-12.0); Neutrophils # (auto) 2.4 10 ^3/uL (1.6-8.6); Neutrophils % (auto) 44.6 % (37.0-80.0); Red Blood Cells 3.83 10^6/uL (4.0-5.20); Red Cell Distribution Width 15.1 % (11.8-14.3); White Blood Cell 5.3 10^3/uL (4.4-10.8)
== END | disposition home or self-care (01) ==
LOC: LAB 08:51
PROVIDERS: ATTEND Internal Medicine
DX: E11.22 Type 2 diabetes mellitus with diabetic chronic kidney disease (principal); N18.32 Chronic kidney disease, stage 3b; D63.1 Anemia in chronic kidney disease; E21.3 Hyperparathyroidism, unspecified; E78.5 Hyperlipidemia, unspecified; M10.9 Gout, unspecified; R80.9 Proteinuria, unspecified; R82.90 Unspecified abnormal findings in urine
CPT/HCPCS: 36415; 80069; 81001; 82043; 82306; 82570; 83036; 83970; 84550; 85025

== ENCOUNTER → 2023-12-21 | Outpatient (CLI) | payer MEDICAID | END | disposition home or self-care (01) | LOC: LAB 11:32 | PROVIDERS: ATTEND Internal Medicine | DX: C90.01 Multiple myeloma in remission (principal) | CPT/HCPCS: 36415; 84702 ==

== ENCOUNTER → 2024-01-04 | Outpatient (CLI) | payer MEDICAID | END | disposition home or self-care (01) | LOC: LAB 11:38 | PROVIDERS: ATTEND Internal Medicine | DX: C90.01 Multiple myeloma in remission (principal) | CPT/HCPCS: 36415; 84702 ==

== ENCOUNTER → 2024-01-13 | Outpatient (CLI) | payer MEDICAID | END | disposition home or self-care (01) | LOC: LAB 08:43 | PROVIDERS: ATTEND Internal Medicine | DX: C90.01 Multiple myeloma in remission (principal) | CPT/HCPCS: 36415; 84702 ==

== ENCOUNTER → 2024-02-22 | Outpatient (CLI) | payer MEDICAID | END | disposition home or self-care (01) | LOC: LAB 09:59 | PROVIDERS: ATTEND Internal Medicine | DX: C90.01 Multiple myeloma in remission (principal) | CPT/HCPCS: 36415; 84702 ==

== ENCOUNTER → 2024-03-24 | Outpatient (CLI) | payer MEDICAID ==
[2024-03-24 13:54] LABS: Basophils # (auto) 0 10 ^3/uL (0-0.2); Basophils % (auto) 1.2 % (0.0-2.0); Eosinophils # (auto) 0.4 10 ^3/uL (0-0.8); Eosinophils % (auto) 9.7 % (0.0-7.0); Hematocrit 34.9 % (36.0-46.0); Hemoglobin 11.9 g/dL (12.2-16.2); Lymphocytes # (auto) 1.4 10 ^3/uL (0.4-5.4); Lymphocytes % (auto) 36.1 % (10.0-50.0); Mean Corpuscular Hemoglobin 30.7 pg (28.0-32.0); Mean Corpuscular Hgb Conc. 34.1 g/dL (32.0-36.0); Monocytes # (auto) 0.3 10 ^3/uL (0-1.3); Monocytes % (auto) 7.8 % (0.0-12.0); Neutrophils # (auto) 1.8 10 ^3/uL (1.6-8.6); Neutrophils % (auto) 45.2 % (37.0-80.0); Nucleated Red Blood Cells % 0.1 %; Platelet Count (auto) 224 10^3/uL (140-450); Red Blood Cells 3.87 10^6/uL (4.0-5.20); Red Cell Distribution Width 15.6 % (11.8-14.3)
[2024-03-24 14:11] LABS: Alanine Aminotransferase 26 U/L (7-40); Albumin 4.6 g/dL (3.2-4.8); Alkaline Phosphatase 143 U/L (46-116); Anion Gap 8 (5-15); Aspartate Aminotransferase 12 U/L (13-40); BUN/Creatinine Ratio 14.3 (10.0-20.0); Bilirubin, Total 0.5 mg/dL (0.2-1.0); Blood Urea Nitrogen 35 mg/dL (9-23); Calcium 9.8 mg/dL (8.7-10.4); Carbon Dioxide 24 mmol/L (20-31); Chloride 109 mmol/L (98-107); GFR African American 28 mL/min; GFR Non-African American 23 mL/min; Glucose 214 mg/dL (74-106); Phosphorus 4.1 mg/dL (2.4-5.1); Potassium 3.7 mmol/L (3.5-5.1); Sodium 141 mmol/L (136-145); Total Protein 6.7 g/dL (5.7-8.2); Uric Acid 5.2 mg/dL (3.1-7.8)
[2024-03-24 14:21] LABS: Creatinine, Urine 85.94 mg/dL (30.0-125.0); Urine Protein/Creatinine Ratio 0.98
[2024-03-25 08:06] LABS: Immunoglobulin A 180 mg/dL (87-352); Immunoglobulin G, Serum 561 mg/dL (586-1602); Immunoglobulin M 13 mg/dL (26-217)
[2024-03-25 14:07] LABS: Kappa Lite Chain Free Serum 41.9 mg/L (3.3-19.4)
== END | disposition home or self-care (01) ==
LOC: LAB 13:22
PROVIDERS: ATTEND Internal Medicine
DX: C90.01 Multiple myeloma in remission (principal); N18.30 Chronic kidney disease, stage 3 unspecified; D63.1 Anemia in chronic kidney disease; E11.21 Type 2 diabetes mellitus with diabetic nephropathy; N39.0 Urinary tract infection, site not specified; R80.9 Proteinuria, unspecified; E21.3 Hyperparathyroidism, unspecified; M10.9 Gout, unspecified; E55.9 Vitamin D deficiency, unspecified
CPT/HCPCS: 36415; 80053; 80069; 82232; 82570; 82784; 83036; 83521; 83970; 84155; 84156; 84165; 84550; 84702; 85025

== ENCOUNTER → 2024-05-03 | Outpatient (CLI) | payer MEDICAID | END | disposition home or self-care (01) | LOC: LAB 08:43 | PROVIDERS: ATTEND Internal Medicine | DX: C90.01 Multiple myeloma in remission (principal) | CPT/HCPCS: 36415; 84702 ==

== ENCOUNTER → 2024-06-06 | Outpatient (CLI) | payer MEDICAID | END | disposition home or self-care (01) | LOC: LAB 10:12 | PROVIDERS: ATTEND Internal Medicine | DX: C90.01 Multiple myeloma in remission (principal) | CPT/HCPCS: 36415; 84702 ==

== ENCOUNTER → 2024-06-14 | Outpatient (CLI) | payer MEDICAID | END | disposition home or self-care (01) | LOC: LAB 11:33 | PROVIDERS: ATTEND Internal Medicine | DX: C90.01 Multiple myeloma in remission (principal) | CPT/HCPCS: 36415; 84702 ==

== ENCOUNTER → 2024-06-24 | Outpatient (CLI) | payer MEDICAID | END | disposition home or self-care (01) | LOC: LAB 11:23 | PROVIDERS: ATTEND Internal Medicine | DX: C90.01 Multiple myeloma in remission (principal) | CPT/HCPCS: 36415; 84702 ==

== ENCOUNTER 2024-07-18 13:05 | Inpatient (IN) | payer MEDICAID ==
[~2024-07-18] VITALS: Ht 160 cm; Wt 109.4 kg
[~2024-07-18 13:05] MED LIST changes: -INSUINJ7 SC; -LISI2.5T47; -METO25TA93; -PANT40T
[2024-07-18] MEDS ORDERED: VANCOMYCIN PER PHARMACY 0 MG IV SCH (13:45)
[2024-07-18] MEDS: IPRATROPIUM BROM 0.5 MG/2.5ML INH SOL NEB ONE (14:07)
[2024-07-18] MEDS: ALBUTEROL SULF 2.5 MG/0.5ML(0.5%) NEB SOLN NEB ONE (14:07)
[2024-07-18] MEDS: PIPERACILLIN-TAZOB 3.375GM 100 ML IV ONE (14:24)
[2024-07-18 14:28] LABS: Anion Gap 14 (5-15); BUN/Creatinine Ratio 11.3 (10.0-20.0); Basophils # (auto) 0 10 ^3/uL (0-0.2); Basophils % (auto) 0.3 % (0.0-2.0); Bilirubin, Total 1.1 mg/dL (0.2-1.0); Calcium 9.1 mg/dL (8.7-10.4); Carbon Dioxide 21 mmol/L (20-31); Chloride 104 mmol/L (98-107); Eosinophils # (auto) 0.1 10 ^3/uL (0-0.8); Eosinophils % (auto) 3.2 % (0.0-7.0); Hematocrit 37.1 % (36.0-46.0); Hemoglobin 12.2 g/dL (12.2-16.2); Lymphocytes # (auto) 1.6 10 ^3/uL (0.4-5.4); Lymphocytes % (auto) 43.8 % (10.0-50.0); Mean Corpuscular Hemoglobin 29.5 pg (28.0-32.0); Mean Corpuscular Volume 89.3 fL (80.0-100.0); Monocytes # (auto) 0.8 10 ^3/uL (0-1.3); Neutrophils # (auto) 1.1 10 ^3/uL (1.6-8.6); Neutrophils % (auto) 30.2 % (37.0-80.0); Nucleated Red Blood Cells % 0.1 %; Platelet Count (auto) 229 10^3/uL (140-450); Potassium 3.9 mmol/L (3.5-5.1); Red Blood Cells 4.15 10^6/uL (4.0-5.20); Red Cell Distribution Width 15.4 % (11.8-14.3); Sodium 139 mmol/L (136-145); Total Protein 6.9 g/dL (5.7-8.2); White Blood Cell 3.7 10^3/uL (4.4-10.8)
[2024-07-18 14:30] LABS: Alanine Aminotransferase 124 U/L (7-40); Albumin 4.9 g/dL (3.2-4.8); Alkaline Phosphatase 155 U/L (46-116); Aspartate Aminotransferase 55 U/L (13-40); Blood Urea Nitrogen 31 mg/dL (9-23); Glucose 133 mg/dL (74-106)
[2024-07-18 14:35] LABS: Monocytes % (auto) 22.5 % (0.0-12.0)
[2024-07-18 14:37] LABS: Lactic Acid w/Reflex 2.4 mmol/L (0.4-2.0)
[2024-07-18] MEDS: VANCOMYCIN 1.5GM/250ML 250 ML IV ONE (14:45)
--- NOTE | 2024-07-18 15:00 | ED.PDOC ---
SOB-HPI HPI Comments 43-year-old female with a history of bone cancer on oral chemo, CKD stage 4, diabetes brought in by family, transferred from urgent care for shortness a breath. Patient reports shortness a breath and productive cough with green sputum for the last 2 days, associated with fever. She denies any chest pain, nausea, vomiting, diaphoresis or edema. Patient was seen at urgent care and was found to be hypoxic on room air. Chest x-ray performed at Urgent Care showed low lung volumes and patchy opacity in the left lung base which may represent atelectasis versus airspace disease. Patient received a breathing treatment at Urgent Care which she states improved her symptoms, however she still feels short of breath. 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 Face symmetric. Moist mucous membranes.) Neck: Full Range of Motion, Normal Inspection Respiratory: Accessory Muscle Use, Decreased Breath Sounds (At bilateral bases), No Accessory Muscle Use, Respiratory Distress (Mild), Other Cardiovascular: No Edema, No JVD, Regular Rate/Rhythm Breast Exam: Deferred Gastrointestinal: Non Tender, Soft Genitalia: Deferred Pelvic: Deferred Rectal: Deferred Extremities: Normal inspection, Normal range of motion, Non-tender, No pedal edema Neurologic: Alert (Oriented x4), Normal Affect, Normal Mood, Other (Moves all extremities. No gross focal deficit.) Cerebellar Function: NOT DONE Reflexes: NOT DONE Skin: Dry, Pallor, Warm Lymphatic: NOT DONE Was a procedure done? Was a procedure done?: No Differential Dx Differential Diagnosis: Asthma, Bronchitis, CHF, COPD, Pneumonia, Pulmonary Embolism, Respiratory Distress, URI X-Ray, Labs, Meds, VS Vital Signs Date Time Temp Pulse Resp B/P (MAP) Pulse Ox O2 Delivery O2 Flow Rate FiO2 07/18/24 18:00 99.1 96 22 133/74 (93) 95 99.1 07/18/24 17:42 98 Nasal Cannula* 2 07/18/24 16:00 100.0 109 19 123/65 (84) 94 100.0 07/18/24 14:10 20 96 Room Air* 0 21 21 07/18/24 14:05 98.9 108 17 136/85 (102) 100 98.9 07/18/24 14:04 Nasal Cannula* 2 07/18/24 14:02 32 97 Simple Mask* 10 N/A Cool Aerosol 07/18/24 13:10 99.5 108 32 138/87 (104) 97 Lab Test 07/18/24 17:53 07/18/24 15:23 07/18/24 14:41 07/18/24 13:38 Range/Units Influenza Type A Antigen Negative Negative Influenza Type B Antigen Negative Negative SARS-CoV-2 Antigen (Rapid) Negative NEGATIVE Lactic Acid Level 2.6 *H 0.4-2.0 mmol/L Troponin I High Sensitivity 7 7 </=34 ng/L White Blood Count 3.7 L 4.4-10.8 10^3/uL Red Blood Count 4.15 4.0-5.20 10^6/uL Hemoglobin 12.2 12.2-16.2 g/dL Hematocrit 37.1 36.0-46.0 % Mean Corpuscular Volume 89.3 80.0-100.0 fL Mean Corpuscular Hemoglobin 29.5 28.0-32.0 pg Mean Corpuscular Hemoglobin Concent 33.0 32.0-36.0 g/dL Red Cell Distribution Width 15.4 H 11.8-14.3 % Platelet Count 229 140-450 10^3/uL Mean Platelet Volume 8.5 6.9-10.8 fL Neutrophils (%) (Auto) 30.2 L 37.0-80.0 % Lymphocytes (%) (Auto) 43.8 10.0-50.0 % Monocytes (%) (Auto) 22.5 H 0.0-12.0 % Eosinophils (%) (Auto) 3.2 0.0-7.0 % Basophils (%) (Auto) 0.3 0.0-2.0 % Neutrophils # (Auto) 1.1 L 1.6-8.6 10 ^3/uL Lymphocytes # (Auto) 1.6 0.4-5.4 10 ^3/uL Monocytes # (Auto) 0.8 0-1.3 10 ^3/uL Eosinophils # (Auto) 0.1 0-0.8 10 ^3/uL Basophils # (Auto) 0 0-0.2 10 ^3/uL Nucleated Red Blood Cells 0.1 % Sodium Level 139 136-145 mmol/L Potassium Level 3.9 3.5-5.1 mmol/L Chloride Level 104 98-107 mmol/L Carbon Dioxide Level 21 20-31 mmol/L Anion Gap 14 5-15 Blood Urea Nitrogen 31 H 9-23 mg/dL Creatinine 2.75 H 0.550-1.02 mg/dL Glomerular Filtration Rate Calc 22 >90 mL/min BUN/Creatinine Ratio 11.3 10.0-20.0 Serum Glucose 133 H 74-106 mg/dL Calcium Level 9.1 8.7-10.4 mg/dL Total Bilirubin 1.1 H 0.2-1.0 mg/dL Aspartate Amino Transferase (AST) 55 H 13-40 U/L Alanine Aminotransferase (ALT) 124 H 7-40 U/L Alkaline Phosphatase 155 H 46-116 U/L B-Type Natriuretic Peptide 27.95 0-100 pg/mL Total Protein 6.9 5.7-8.2 g/dL Albumin 4.9 H 3.2-4.8 g/dL Beta HCG, Quantitative 1.0 L 1.5-4.2 mIU/mL Test 07/18/24 13:30 07/18/24 13:28 Range/Units Lactic Acid Level 2.4 *H 0.4-2.0 mmol/L POC Glucose 105 70-106 mg/dl Current Medications Medications (Trade) Dose Ordered Sig/Pippa Route Start Time Stop Time Status Last Admin Albuterol (Ventolin Medneb) 5 mg ONCE ONCE NEB 07/18/24 13:45 07/18/24 13:46 DC 07/18/24 14:07 Ipratropium [place] (Atrovent Medneb) 0.5 mg ONCE ONCE NEB 07/18/24 13:45 07/18/24 13:46 DC 07/18/24 14:07 Piperacillin Sod/ Tazobactam Sod 100 ml @ 100 mls/hr ONCE ONCE IV 07/18/24 13:45 07/18/24 14:44 DC 07/18/24 14:24 Vancomycin HCl 250 ml @ 200 mls/hr ONCE ONCE IV 07/18/24 14:45 07/18/24 15:59 DC 07/18/24 14:45 Sodium Chloride 2,000 ml @ 1,000 mls/hr Q2H ONCE IV 07/18/24 15:00 07/18/24 16:59 DC 07/18/24 16:38 Acetaminophen (Tylenol Tablet) 650 mg ONCE ONCE PO 07/18/24 15:30 07/18/24 15:31 DC 07/18/24 15:26 PROCEDURE(s): CXR2 - CHEST TWO VIEWS ROUTINE REASON: R/O PNEUMONIA ORDER NUMBER(s): [id number], ACCESSION NUMBER(s): [id number] EXAM: XY CHEST TWO VIEWS ROUTINE CLINICAL HISTORY: R/O PNEUMONIA COMPARISON: None TECHNIQUE: Frontal and lateral view of the chest was obtained FINDINGS: Lines and Tubes: None Lungs: Low lung volumes. There is patchy opacity in the left lung base which may represent atelectasis versus airspace disease. Pleura: No effusion. No pneumothorax. Cardiomediastinal contours: Unremarkable Pulmonary vasculature: Within normal limits. Bones: No acute osseous abnormality. IMPRESSION: 1. Low lung volumes. Patchy opacity in the left lung base may represent atelectasis versus airspace disease. HS:Y X-Ray, Labs, Meds, VS Comment 43-year-old female with a history of bone cancer on oral chemo, CKD, diabetes referred from urgent care for evaluation of shortness of breath Vitals remarkable for heart rate 108, respiratory rate 32 Exam remarkable for diminished breath sounds at both bases and mild respiratory distress Rhythm strip independently interpreted by me: Sinus tach, rate 108, no ectopy. Chest x-ray IMPRESSION: 1. Low lung volumes. Patchy opacity in the left lung base may represent atelectasis versus airspace disease. CBC remarkable for WBC 3.7, CMP remarkable for BUN 31, creatinine 2.75, BNP pending, troponin negative, lactic 2.4 Patient treated with the following in the ED: Albuterol 5 mg/Atrovent 0.5 mg nebulized, Zosyn 3.375 g IV, vancomycin IV per pharmacy, 2 L 0.9 normal saline IV bolus, Tylenol 650 mg p.o., morphine 4 mg IV, Zofran 4 mg IV On re-evaluation on nasal cannula oxygen, patient states her symptoms have improved. Vitals are stable. Plan is to admit the patient for IV antibiotics to treat probable pneumonia and respiratory support as needed. Time of 1ST Reevaluation: 14:58 Reevaluation 1ST: Improved Patient Education/Counseling: Diagnosis, Treatment, Need For Follow Up Family Education/Counseling: Diagnosis, Treatment, Need For Follow Up Sepsis Sepsis Reasesment Focused Exam Sepsis focused exam: focus exam completed (Vitals stable. Capillary refill less than 2 seconds. No respiratory distress.), time: (1500) Departure 1 Departure Time of Disposition: 14:59 Impression: Primary Impression: Pneumonia Qualified Codes: J18.9 - Pneumonia, unspecified organism Additional Impressions: Leukopenia Qualified Codes: D72.819 - Decreased white blood cell count, unspecified Sepsis Qualified Codes: A41.9 - Sepsis, unspecified organism Disposition: ADMITTED INPATIENT Admit to: Tele Condition: Guarded Critical Care Note Critical Care Time?: Yes (35 min-critical care time only) Critical care comment: Critical care time including multiple bedside re-evaluations, review of lab and imaging studies, and discussion of the case with the admitting provider. Patient is high risk for respiratory and/or hemodynamic decompensation Stability Stability form required: No Heart Score Heart Score: Heart Score Response (Comments) Value History N/A 0 EKG N/A 0 Age N/A 0 Risk Factors N/A 0 Troponin N/A 0 Total 0 GUNNAR MENENDEZ MD Jul 18, 2024 15:00
[2024-07-18] MEDS: ACETAMINOPHEN 325 MG TAB PO ONE (15:26)
[2024-07-18] MEDS: SODIUM CHLORIDE 0.9% 2,000 ML IV ONE (16:38)
[2024-07-18 19:00] LABS: COVID19 ANTIGEN SOFIA FIA NEGATIVE (NEGATIVE); Rapid Influenza A Negative (Negative); Rapid Influenza B Negative (Negative)
[2024-07-18] MEDS: MORPHINE SULFATE 4 MG/ML SYR/VIAL IV ONE (21:41)
[2024-07-18] MEDS: MORPHINE SULFATE 4 MG/ML SYR/VIAL ONE (21:41)
[2024-07-18] MEDS: ONDANSETRON HCL 4 MG/2 ML VIAL IV ONE (21:42)
[2024-07-18 21:45] VITALS: PULSE 98; O2SAT 96
[2024-07-18] MEDS ORDERED: ACETAMINOPHEN 325 MG TAB PO PRN (21:45)
[2024-07-18 22:12] LABS: Triglycerides 101 mg/dL (< 150)
[2024-07-18 22:13] LABS: LDL Cholesterol 71 mg/dL (< 100)
[2024-07-18 22:15] LABS: Cholesterol 159 mg/dL (< 200)
[2024-07-18 22:17] LABS: HDL Cholesterol 72 mg/dL (40-59)
--- NOTE | 2024-07-18 22:55 | DVHHPRES ---
History of Present Illness Resident Creating Document: SERA MICHEL History of Present Illness This is a 43-year-old female with past medical history of bone cancer oral chemotherapy (Revlimid), hypertension, type 2 diabetes, CKD stage 4. The patient presented to the ED referred by urgent care for we will pneumoniae. The patient reports that she went to the urgent care due to left eye inflammation and infection but on her visit, patient was having cough, productive sputum for which a chest x-ray was ordered showing possible left-sided consolidation and the patient was suggested to go to the ED. on admission to the ED, the patient is reporting shortness of breaths associated with sputum production that is greenish in color. The patient is currently on 2 L of oxygen through nasal cannula. Patient also reports left sided eye pain associated with conjunctival injection and thick secretions coming out from the eyelashes. The patient also reports pressure in the back of the left eye and reported fever and chills in the past 1-2 days. Initial labs were showing a WBC of 3.7, hemoglobin of 12.2 CMP came back showing elevated BUN and creatinine 31 and 2.75 respectively. AST and ALT were also elevated at 55 and 124 respectively. Troponins came back negative and BNP was normal range. test came back negative and lactic acid was elevated at 2.6. Chest x-ray performed at the urgent Care was evaluated which showed left lower base infiltrates. On my examination, the patient was having left lung base crackles, no peripheral edema, no chest pain and no any other signs or symptoms. Patient will be admitted for further assessment and management of pneumonia and possible bacterial conjunctivitis. Medical history: Bone cancer on oral chemotherapy (Revlimid), hypertension, type 2 diabetes, CKD stage 4 Home medications: Vitamin-D supplementation, Revlimid 10 mg daily, trazodone 0.5 tab daily of 100 mg Cardiovascular: HTN Renal/: Chronic renal insuff, Chronic renal failure Endocrine: Diabetes Past Medical History Lung cancer on chemotherapy Revlimid Past Surgical History: None Family History: None Smoke: No ALCOHOL: none Drugs: None Lives: with Family Domestic Violence: Neg Review of Systems Constitutional: Yes: Fever, Chills; No: Sweats, Weakness, Malaise, Other Eyes: Pain (And erythema in the left), Conjunctivae inflammation (Left eye), Eyelid inflammation; No: Vision change, Other, Redness ENT: No: Ear pain, Ear discharge, Nose pain, Nose discharge, Nose congestion, Mouth pain, Mouth swelling, Throat pain, Throat swelling, Other Respiratory: Cough, Shortness of breath, SOB with excertion, Sputum; No: Dry, Wheezing, Hemoptysis, Pleuritic Pain, Wheezing, Other Cardiovascular: No: Chest Pain, Palpitations, Orthopnea, Paroxysmal Noc. Dyspnea, Edema, Lt Headedness, Other Gastrointestinal: No: Nausea, Vomiting, Abdominal Pain, Diarrhea, Constipation, Melena, Hematochezia, Other Genitourinary: No Dysuria, No Frequency, No Incontinence, No Hematuria, No Retention, No Other Musculoskeletal: No: other, neck pain, shoulder pain, arm pain, back pain, hand pain, leg pain, foot pain Skin: No: Rash, Lesions, Jaundice, Bruising, Other Neurological: No: Weakness, Numbness, Incoordination, Change in speech, Confusion, Seizures, Other Allergies: Coded Allergies: NO KNOWN ALLERGIES (Unverified , 07/31/15) Medications Current Medications Medications Dose Ordered Sig/Pippa Route Start Time Stop Time Status Last Admin Dose Admin Vancomycin HCl 0 ml @ 0 mls/hr UD IV 07/18/24 13:45 Acetaminophen 650 mg Q6HP PRN PO 07/18/24 21:45 UNV Exam Vital Signs Vital Signs Date Time Temp Pulse Resp B/P (MAP) Pulse Ox O2 Delivery O2 Flow Rate FiO2 07/18/24 21:41 97 22 140/82 07/18/24 18:00 99.1 95 99.1 07/18/24 17:42 Nasal Cannula* 2 28 General Appearance: Alert, Oriented X3, Cooperative, mild distress HEENT: Atraumatic, PERRLA, EOMI, Mucous membr. moist/pink Respiratory: Other (There is adequate air movement on bilateral lung crawford with left lower lung base crackles. No wheezes at this time) Cardiovascular: Regular rate, Normal S1, Normal S2, No murmurs Abdominal: Normal bowel sounds, Soft, No tenderness, No hepatospenomegaly, No masses Extremities: No clubbing, No cyanosis, No edema, Normal pulses, No tenderness/swelling Skin: No rashes, No breakdown, No significant lesion Neuro: Normal gait, Normal speech, Strength at 5/5 X4 ext, Normal tone, Sensation intact, Cranial nerves 3-12 NL, Reflexes 2+ Psych/Mental Status: Mental status NL, Mood NL Labs/Xrays Labs Test 07/18/24 17:53 07/18/24 15:23 07/18/24 14:41 07/18/24 13:38 Range/Units Influenza Type A Antigen Negative Negative Influenza Type B Antigen Negative Negative SARS-CoV-2 Antigen (Rapid) Negative NEGATIVE Lactic Acid Level 2.6 *H 0.4-2.0 mmol/L Troponin I High Sensitivity 7 </=34 ng/L White Blood Count 3.7 L 4.4-10.8 10^3/uL Red Blood Count 4.15 4.0-5.20 10^6/uL Hemoglobin 12.2 12.2-16.2 g/dL Hematocrit 37.1 36.0-46.0 % Mean Corpuscular Volume 89.3 80.0-100.0 fL Mean Corpuscular Hemoglobin 29.5 28.0-32.0 pg Mean Corpuscular Hemoglobin Concent 33.0 32.0-36.0 g/dL Red Cell Distribution Width 15.4 H 11.8-14.3 % Platelet Count 229 140-450 10^3/uL Mean Platelet Volume 8.5 6.9-10.8 fL Neutrophils (%) (Auto) 30.2 L 37.0-80.0 % Lymphocytes (%) (Auto) 43.8 10.0-50.0 % Monocytes (%) (Auto) 22.5 H 0.0-12.0 % Eosinophils (%) (Auto) 3.2 0.0-7.0 % Basophils (%) (Auto) 0.3 0.0-2.0 % Neutrophils # (Auto) 1.1 L 1.6-8.6 10 ^3/uL Lymphocytes # (Auto) 1.6 0.4-5.4 10 ^3/uL Monocytes # (Auto) 0.8 0-1.3 10 ^3/uL Eosinophils # (Auto) 0.1 0-0.8 10 ^3/uL Basophils # (Auto) 0 0-0.2 10 ^3/uL Nucleated Red Blood Cells 0.1 % Sodium Level 139 136-145 mmol/L Potassium Level 3.9 3.5-5.1 mmol/L Chloride Level 104 98-107 mmol/L Carbon Dioxide Level 21 20-31 mmol/L Anion Gap 14 5-15 Blood Urea Nitrogen 31 H 9-23 mg/dL Creatinine 2.75 H 0.550-1.02 mg/dL Glomerular Filtration Rate Calc 22 >90 mL/min BUN/Creatinine Ratio 11.3 10.0-20.0 Serum Glucose 133 H 74-106 mg/dL Calcium Level 9.1 8.7-10.4 mg/dL Total Bilirubin 1.1 H 0.2-1.0 mg/dL Aspartate Amino Transferase (AST) 55 H 13-40 U/L Alanine Aminotransferase (ALT) 124 H 7-40 U/L Alkaline Phosphatase 155 H 46-116 U/L B-Type Natriuretic Peptide 27.95 0-100 pg/mL Total Protein 6.9 5.7-8.2 g/dL Albumin 4.9 H 3.2-4.8 g/dL Beta HCG, Quantitative 1.0 L 1.5-4.2 mIU/mL Test 07/18/24 13:28 Range/Units POC Glucose 105 70-106 mg/dl Assessment/Plan Assessment/Plan Assessment/plan Acute hypoxic respiratory failure likely due to left lower lobe bacterial Gram-positive/Gram-negative pneumonia R/O pulmonary embolism (unlikely) -currently on 2 L of oxygen through nasal cannula saturating 95% -chest x-ray showed left lower lung opacities/infiltrates -reports recent fever, shortness of breath and sputum production greenish in color -Lactic acid 2.6 -start IV ceftriaxone and IV azithromycin -respiratory therapy albuterol and ipratropium once -no need for steroids at this time since the patient has no COPD or asthma -ordered D-dimer -monitor oxygen saturation Sepsis likely due to above -start IV antibiotics -IV fluids at 100 cc/hour Possible bacterial conjunctivitis of the left eye -Start erythromycin MUKESH on CKD stage 4 likely due to sepsis -BUN 31, creatinine 2.75 -IV fluids at 100 cc/hour -monitor kidney function Acute transaminitis in the setting of sepsis -liver enzymes, AST 55, ALT 124 -monitor liver enzymes Type 2 diabetes mellitus -ordered hemoglobin A1c which came back at 6.7% -Start mild sliding scale insulin History of bone cancer -currently on chemotherapy Revlimid 10 mg daily Goals of care discussed with the patient at bedside for >30min, FULL CODE Plan discussed with Dr. Mabry Plan discussed with: Patient My Orders Orders - SERA MICHEL Procedure Category Date Status Time Admit ADMIT 07/18/24 Transmitted 21:32 Code Status CODE 07/18/24 Transmitted 21:32 Vital Signs JANINE 07/18/24 In Process 21:32 Review Orders With [facility] 07/18/24 In Process Adm. 21:32 Encourage Activity As JANINE 07/18/24 In Process Tolerate 21:32 Regular Diet DIET 07/19/24 Transmitted Breakfast Acetaminophen Tablet PHA 07/18/24 Logged (Tylenol Tablet) 21:45 Notify Md Of Changes JANINE 07/18/24 In Process From Base 21:32 Advance Directive JANINE 07/18/24 In Process 21:32 Urinalysis LAB 07/18/24 Logged 21:32 Complete Blood Count LAB 07/19/24 Verified 04:00 Lipid Panel LAB 07/18/24 In Process 21:32 Urine Bacterial MORAIMA 07/18/24 Logged Culture 21:32 Patient Condition ORDERS 07/18/24 Transmitted 21:32 Allergies JANINE 07/18/24 In Process 21:32 Drug Screen LAB 07/18/24 Logged 21:32 Date of Service: Jul 18, 2024 Billing Provider: ARMEN MABRY MD Common Visit Codes: [id number] INP/OBS CARE (HIGH) SERA MICHEL RESIDENT Jul 18, 2024 22:55 ARMEN MABRY MD Jul 19, 2024 19:56
[2024-07-18] MEDS ORDERED: DEXTROSE (50%) 50ML SYRG IV PRN (23:00)
[2024-07-18] MEDS: SODIUM CHLORIDE 0.9% 1,000 ML IV ONE (23:18)
[2024-07-19] VITALS (8 sets, daily range): BP systolic 110–138; BP diastolic 64–81; PULSE 79–95; RESP 18–21; TEMP 98–98.1; O2SAT 92–98
[2024-07-19 03:23] LABS: Urine Bacteria FEW /hpf (None Seen); Urine Blood 2+ /uL (Negative); Urine Clarity Clear (Clear); Urine Color Light-Yellow (Yellow); Urine Protein, UAD 2+ (Negative); Urine Specific Gravity 1.015 (1.001-1.035); Urine Squamous Epithelial Cell FEW /hpf (<5); Urine Urobilinogen Normal (Negative); Urine WBC 2 /HPF (0-5)
[2024-07-19 03:26] LABS: Opiate Scree,Urine Pos (NEGATIVE)
[2024-07-19 03:27] LABS: Amphetamine Screen, Urine Neg (NEGATIVE); Barbiturate Scree,Urine Neg (NEGATIVE); Benzodiazephine Screen, Urine Neg (NEGATIVE); Cannabinoid Screen, Urine Neg (NEGATIVE); Cocaine Screen, Urine Neg (NEGATIVE); Phencyclidine Screen, Urine Neg (NEGATIVE)
[2024-07-19] MEDS: HYDROcodone-ACET 5/325MG TAB PO PRN (04:43)
[2024-07-19 05:37] LABS: Hematocrit 31.7 % (36.0-46.0); Hemoglobin 10.7 g/dL (12.2-16.2); Mean Corpuscular Hemoglobin 30.3 pg (28.0-32.0); Mean Corpuscular Hgb Conc. 33.8 g/dL (32.0-36.0); Mean Corpuscular Volume 89.6 fL (80.0-100.0); Platelet Count (auto) 187 10^3/uL (140-450); Red Blood Cells 3.54 10^6/uL (4.0-5.20); Red Cell Distribution Width 14.7 % (11.8-14.3); White Blood Cell 3.2 10^3/uL (4.4-10.8)
[2024-07-19] MEDS: ACCU-CHEK COMFORT CURVE STRIP VI SCH (06:41)
[2024-07-19] MEDS: InsuLIN REG 1unit/0.01ml Soln (100units/ml) SC SCH (06:46)
[2024-07-19] MEDS ORDERED: IPRATROPIUM BROM 0.5 MG/2.5ML INH SOL NEB PRN (07:00)
[2024-07-19] MEDS ORDERED: ALBUTEROL SULF 2.5 MG/0.5ML(0.5%) NEB SOLN NEB PRN (07:00)
[2024-07-19 07:06] LABS: Basophils % (manual) 0 (0.0-2.0); Blast Cells 0; Metamyelocytes % 0; Myelocytes % 0; Promyelocytes % 0; Reactive Lymphocytes 0
[2024-07-19 09:09] LABS: Band Neutrophils % (manual) 2; Eosinophils % (manual) 9 (0-7); Lymphocytes % (manual) 37 (10.0-50.0); Monocytes % (manual) 14 (0-12); Platelet Estimate Adequate
[2024-07-19] MEDS: cefTRIAXone 1GM/50ML D5W 50 ML IV SCH (09:44)
[2024-07-19] MEDS: REVLIMID 10 MG PO SCH (10:00)
[2024-07-19] MEDS: AZITHROMYCIN 500MG/ 250ML 250 ML IV SCH (10:22)
[2024-07-19] MEDS: ERYTHROMY OPTH OINT 5mg/gm 1gm or 3.5gm tube OP SCH (11:36)
[2024-07-19] MEDS: SODIUM CHLORIDE 0.9% 1,550 ML IV ONE (11:52)
--- NOTE | 2024-07-19 12:04 | DVH ---
RENAL ULTRASOUND CLINICAL HISTORY: Jelani TECHNIQUE: Multiple ultrasound images of the kidneys and bladder were obtained. COMPARISON: None FINDINGS: The right kidney measures 8.5 cm in length. The left kidney measures 9.3 cm. The kidneys appear echog enic which May relate to medical renal disease. There is no sonographic evidence of nephrolithiasis o r hydronephrosis. Bladder appears within normal limits with prevoid volume measuring 312 cc. IMPRESSION: 1. The kidneys appear echogenic which May relate to medical renal disease. HS:Y
--- NOTE | 2024-07-19 16:40 | DVHPNRES ---
Progress Note Date Seen: Jul 19, 2024 Resident Creating Document: ROGER FAITH RESIDENT Medical Necessity Reason Pt with a Central, PICC or Fol: No Subjective Review of Systems Patient is a 43-year-old female with past medical history of multiple myeloma on chemotherapy Revlimid, hypertension, diabetes, CKD stage 4, came in due to shortness of breaths and conjunctivitis. According to the patient, she has been feeling flu-like symptoms for the past 6 days and notes having sick contacts 2 weeks ago. Patient went to the urgent care for left eye conjunctivitis where a chest x-ray was obtained and patient was noted to have pneumonia and she was subsequently sent to the ER. Patient also notes having 7 episodes of vomiting over the past 4 days. CXR in the urgent care showed low lung volumes. Patchy opacity in the left lung base may represent atelectasis versus airspace disease. Past surgical history: Autologous bone marrow transplant, jaw osteonecrosis debridement Social & Personal history: Patient lives with family. Denies using tobacco, alcohol, drugs. Allergies: Denies Patient seen and examined at bedside. Patient is alert and oriented to time, place person and responding to all questions. General: Fatigue Eyes: No Pain, No Vision change, No Conjunctivae inflammation, No Eyelid inflammation, No Other, No Redness ENT: No Ear pain, No Ear discharge, No Nose pain, Nose discharge, No Nose congestion, No Mouth pain, No Mouth swelling, Throat pain, No Throat swelling, No Other Cardiovascular: No Chest Pain, No Palpitations, No Orthopnea, No Paroxysmal No Dyspnea, No Edema, No Lt Headedness, No Other Respiratory: Cough, No Dry, Shortness of breath, No SOB with exertion, No Wheezing, No Hemoptysis, No Pleuritic Pain, No Sputum, No Other Gastrointestinal: Nausea, Vomiting, No Abdominal Pain, No Diarrhea, No Constipation, No Melena, No Hematochezia, No Other Genitourinary: No Dysuria, No Frequency, No Incontinence, No Hematuria, No Retention, No Other Musculoskeletal: No other, No neck pain, No shoulder pain, No arm pain, No back pain, No hand pain, No leg pain, No foot pain Skin: No Rash, No Lesions, No Jaundice, No Bruising, No Other Objective vital signs Vital Sign Date Time Temp Pulse Resp B/P (MAP) Pulse Ox O2 Delivery O2 Flow Rate FiO2 07/19/24 16:00 89 07/19/24 15:45 97.5 26 145/77 (99) 93 97.5 07/19/24 15:01 Room Air* 0 21 Total Intake and Output 07/18/24 07/18/24 07/19/24 15:00 23:00 07:00 Intake Total 2350 ml 700 ml Balance 2350 ml 700 ml medications Current Medications Medications Dose Ordered Sig/Pippa Route Start Time Stop Time Status Last Admin Dose Admin Acetaminophen 650 mg Q6HP PRN PO 07/18/24 21:45 Azithromycin 250 ml @ 125 mls/hr DAILY IV 07/19/24 10:00 07/19/24 10:22 125 MLS/HR Diagnostic Test (Pha) 1 strip ACHS 07/19/24 07:00 07/19/24 11:57 1 STRIP Insulin Human Regular ACHS SC 07/19/24 07:00 07/19/24 12:01 6 UNITS Dextrose 50 ml UD PRN IV 07/18/24 23:00 Patient Own Medication 1 DAILY PO 07/19/24 10:00 Acetaminophen/ Hydrocodone Bitart 1 tab PRN PRN PO 07/18/24 23:00 07/19/24 04:43 1 TAB Erythromycin 1 applic Q4HR OP 07/19/24 10:00 07/19/24 15:57 1 APPLIC Ipratropium [place] 0.5 mg Q4HPRN PRN NEB 07/19/24 07:00 Albuterol 2.5 mg Q4HPRN PRN NEB 07/19/24 07:00 Cefepime HCl 50 ml @ 12.5 mls/hr Q12HR IV 07/19/24 22:00 Linezolid 300 ml @ 150 mls/hr Q12HR IV 07/19/24 22:00 Examination General Appearance: Cooperative. Well developed. Well nourished. NAD Head Exam: Normal inspection. Left eye erythema, purulent drainage Neck Exam: Normal inspection. Non-tender. Normal alignment Pulmonary/Respiratory: Chest non-tender. Clear bilateral breath sounds, no crackles, no wheezing. Cardiovascular/Chest: Regular rate and rhythm. No murmurs. No JVD. Peripheral Pulses: 2+ Radial (R). 2+ Radial (L). 2+ Pedal (R). 2+ Pedal (L) Abdominal Exam: Normal bowel sounds. Soft. normal abdomen, no visible veins, Nontender. No hepatospenomegaly. No masses Ankle Exam: Negative ankle edema Lower extremities: Negative lower extremity edema Neuro/Mental Status: A&O x4. Coherent. Thoughts/Psych: Normal thought pattern. Appropriate mood and affect. Good judgement and insight Skin Exam: Normal inspection. Normal color. Warm. Dry laboratory and microbiology Laboratory Tests 07/19/24 04:56 07/18/24 13:38 Test 07/18/24 13:38 Range/Units Serum Glucose 133 H 74-106 mg/dL Microbiology Date/Time Source Procedure Growth Status 07/18/24 13:38 Blood Blood Culture - Preliminary NO GROWTH AFTER 24 HOURS OF INCUBATION. Resulted Labs and/or images reviewed: Labs reviewed by me, Image(s) reviewed by me Problem List/Assessment/Plan Problem List/Assessment/Plan Acute hypoxic respiratory failure Community-acquired pneumonia, Gram-positive versus Gram-negative Sepsis due to above - CXR: Low lung volumes. Patchy opacity in the left lung base may represent atelectasis versus airspace disease. - IV azithromycin, IV cefepime - IV linezolid b.i.d. - ipratropium and albuterol med nebs - IV NS 2.5 L bolus, IV NS at 100 cc/hour Immunocompromise secondary to immunosuppressive therapy for multiple myeloma - monitor MUKESH on possible CKD - renal ultrasound: The kidneys appear echogenic which may relate to medical renal disease. - Monitor Bacterial conjunctivitis of the left eye - topical erythromycin Chronic pain - resumed home medication [place] 5 Transaminitis likely due to sepsis - monitor Type 2 diabetes, Hb A1c 6.7 - mild sliding scale insulin Goals of care: Full code, discussed for >16 minutes on 07/19/2024 Plan discussed with patient Plan discussed with Dr. Moss Plan discussed with: Patient, Other (RN) Date of Service: Jul 19, 2024 Billing Provider: CAS MOSS MD Common Visit Codes: [id number] INP/OBS CARE(HIGH) ROGER FAITH RESIDENT Jul 19, 2024 16:40 CAS MOSS MD Jul 25, 2024 11:07
[2024-07-19] MEDS ORDERED: PANT40T (16:51)
[2024-07-19] MEDS ORDERED: INSUINJ7 SC (16:51)
[2024-07-19] MEDS ORDERED: METO25TA93 (16:51)
[2024-07-19] MEDS ORDERED: LISI2.5T47 (16:52)
[2024-07-19] MEDS ORDERED: LINEZOLID 600MG/300ML 300 ML IV SCH (22:00)
[2024-07-19] MEDS: CEFEPIME 1GM/ 50ML 50 ML IV SCH (23:33)
[2024-07-20] VITALS (10 sets, daily range): BP systolic 119–146; BP diastolic 54–77; PULSE 71–93; RESP 16–20; TEMP 98–99; O2SAT 90–98
[2024-07-20] MEDS ORDERED: LINEZOLID 600MG/300ML 300 ML IV SCH
[2024-07-20] MEDS: LINEZOLID 600MG/300ML 300 ML IV SCH (04:02)
[2024-07-20] MEDS: HYDROcodone-ACET 5/325MG TAB PO PRN (04:13)
[2024-07-20 07:01] LABS: Hematocrit 30.3 % (36.0-46.0); Hemoglobin 10.1 g/dL (12.2-16.2); Mean Corpuscular Hemoglobin 29.7 pg (28.0-32.0); Mean Corpuscular Hgb Conc. 33.2 g/dL (32.0-36.0); Mean Corpuscular Volume 89.3 fL (80.0-100.0); Platelet Count (auto) 206 10^3/uL (140-450); Red Blood Cells 3.39 10^6/uL (4.0-5.20); Red Cell Distribution Width 14.9 % (11.8-14.3); White Blood Cell 2.9 10^3/uL (4.4-10.8)
[2024-07-20 07:15] LABS: Anion Gap 12 (5-15); Basophils % (manual) 0 (0.0-2.0); Blast Cells 0; Metamyelocytes % 0; Myelocytes % 0; Promyelocytes % 0; Reactive Lymphocytes 0; Sodium 138 mmol/L (136-145)
[2024-07-20 07:21] LABS: BUN/Creatinine Ratio 9.5 (10.0-20.0)
[2024-07-20 07:24] LABS: Blood Urea Nitrogen 24 mg/dL (9-23); Calcium 8.6 mg/dL (8.7-10.4); Carbon Dioxide 15 mmol/L (20-31); Chloride 111 mmol/L (98-107); Glucose 326 mg/dL (74-106)
[2024-07-20 08:28] LABS: Band Neutrophils % (manual) 3; Eosinophils % (manual) 10 (0-7); Lymphocytes % (manual) 30 (10.0-50.0); Monocytes % (manual) 17 (0-12); Platelet Estimate Adequate
[2024-07-20] MEDS ORDERED: DEXTROSE (50%) 50ML SYRG IV PRN (10:15)
[2024-07-20] MEDS: ONDANSETRON HCL 4 MG/2 ML VIAL IV PRN (11:27)
[2024-07-20] MEDS: INSULIN LANTUS (GLARGINE) 1 /0.01ml (100units/ml) SC SCH (11:30)
[2024-07-20] MEDS: InsuLIN REG 1unit/0.01ml Soln (100units/ml) SC SCH ×2 (11:30→21:38)
[2024-07-20] MEDS: ACCU-CHEK COMFORT CURVE STRIP VI SCH (11:31)
--- NOTE | 2024-07-20 19:37 | DVHPNRES ---
Progress Note Date Seen: Jul 20, 2024 Resident Creating Document: ROGER FAITH RESIDENT Medical Necessity Reason Pt with a Central, PICC or Fol: No Subjective Review of Systems Patient is a 43-year-old female with past medical history of multiple myeloma on chemotherapy Revlimid, hypertension, diabetes, CKD stage 4, came in due to shortness of breaths and conjunctivitis. According to the patient, she has been feeling flu-like symptoms for the past 6 days and notes having sick contacts 2 weeks ago. Patient went to the urgent care for left eye conjunctivitis where a chest x-ray was obtained and patient was noted to have pneumonia and she was subsequently sent to the ER. Patient also notes having 7 episodes of vomiting over the past 4 days. CXR in the urgent care showed low lung volumes. Patchy opacity in the left lung base may represent atelectasis versus airspace disease. Past surgical history: Autologous bone marrow transplant, jaw osteonecrosis debridement Social & Personal history: Patient lives with family. Denies using tobacco, alcohol, drugs. Allergies: Denies Patient seen and examined at bedside. Patient is alert and oriented to time, place person and responding to all questions. Left eye conjunctivitis has significantly improved, however, patient continues to have worsening leukopenia. Had an episode of emesis overnight Objective vital signs Vital Sign Date Time Temp Pulse Resp B/P (MAP) Pulse Ox O2 Delivery O2 Flow Rate FiO2 07/20/24 16:37 99.0 71 18 119/76 (90) 94 99.0 07/20/24 09:57 Room Air* 0 21 Total Intake and Output 07/19/24 07/19/24 07/20/24 15:00 23:00 07:00 Intake Total 200 ml 250 ml 1000 ml Output Total 0 ml Balance 200 ml 250 ml 1000 ml medications Current Medications Medications Dose Ordered Sig/Pippa Route Start Time Stop Time Status Last Admin Dose Admin Acetaminophen 650 mg Q6HP PRN PO 07/18/24 21:45 Azithromycin 250 ml @ 125 mls/hr DAILY IV 07/19/24 10:00 07/20/24 08:55 125 MLS/HR Erythromycin 1 applic Q4HR OP 07/19/24 10:00 07/20/24 18:11 1 APPLIC Ipratropium [place] 0.5 mg Q4HPRN PRN NEB 07/19/24 07:00 Albuterol 2.5 mg Q4HPRN PRN NEB 07/19/24 07:00 Cefepime HCl 50 ml @ 12.5 mls/hr Q12HR IV 07/19/24 22:00 07/20/24 08:54 12.5 MLS/HR Acetaminophen/ Hydrocodone Bitart 1 tab Q4HP PRN PO 07/19/24 19:15 07/20/24 14:30 1 TAB Linezolid 300 ml @ 150 mls/hr Q12H IV 07/20/24 04:00 07/20/24 16:46 150 MLS/HR Insulin Glargine 20 units QAM SC 07/20/24 08:00 07/20/24 11:30 20 UNITS Diagnostic Test (Pha) 1 strip ACHS 07/20/24 11:30 07/20/24 16:46 1 STRIP Insulin Human Regular HS SC 07/20/24 22:00 Insulin Human Regular AC SC 07/20/24 11:30 07/20/24 18:11 3 UNITS Dextrose 50 ml UD PRN IV 07/20/24 10:15 Ondansetron HCl 4 mg Q6HPRN PRN IV 07/20/24 10:15 07/20/24 16:46 4 MG Examination General Appearance: Cooperative. Well developed. Well nourished. NAD Head Exam: Normal inspection. Left eye erythema, purulent drainage Neck Exam: Normal inspection. Non-tender. Normal alignment Pulmonary/Respiratory: Chest non-tender. Clear bilateral breath sounds, no crackles, no wheezing. Cardiovascular/Chest: Regular rate and rhythm. No murmurs. No JVD. Peripheral Pulses: 2+ Radial (R). 2+ Radial (L). 2+ Pedal (R). 2+ Pedal (L) Abdominal Exam: Normal bowel sounds. Soft. normal abdomen, no visible veins, Nontender. No hepatospenomegaly. No masses Ankle Exam: Negative ankle edema Lower extremities: Negative lower extremity edema Neuro/Mental Status: A&O x4. Coherent. Thoughts/Psych: Normal thought pattern. Appropriate mood and affect. Good judgement and insight Skin Exam: Normal inspection. Normal color. Warm. Dry laboratory and microbiology Laboratory Tests 07/20/24 05:46 Test 07/20/24 05:46 Range/Units Serum Glucose 326 H 74-106 mg/dL Microbiology Date/Time Source Procedure Growth Status 07/19/24 09:08 Sputum Gram Stain - Final Resulted 07/19/24 09:08 Sputum Respiratory Culture - Preliminary Resulted 07/19/24 02:30 Voided Urine Urine Culture - Preliminary Resulted 07/18/24 13:38 Blood Blood Culture - Preliminary NO GROWTH AFTER 48 HOURS OF INCUBATION. Resulted Labs and/or images reviewed: Labs reviewed by me, Image(s) reviewed by me Problem List/Assessment/Plan Problem List/Assessment/Plan Acute hypoxic respiratory failure Community-acquired pneumonia, Gram-positive versus Gram-negative Sepsis due to above Intractable nausea - CXR: Low lung volumes. Patchy opacity in the left lung base may represent atelectasis versus airspace disease. - IV azithromycin, IV cefepime - IV linezolid b.i.d. - ipratropium and albuterol med nebs - IV NS 2.5 L bolus, IV NS at 100 cc/hour - IV Zofran Immunocompromise secondary to immunosuppressive therapy for multiple myeloma - monitor MUKESH on possible CKD - renal ultrasound: The kidneys appear echogenic which may relate to medical renal disease. - Monitor Bacterial conjunctivitis of the left eye - topical erythromycin Chronic pain - resumed home medication [place] 5 Transaminitis likely due to sepsis - monitor Type 2 diabetes, Hb A1c 6.7 - mild sliding scale insulin - 20 units Lantus q.a.m. Goals of care: Full code, discussed for >16 minutes on 07/19/2024 Plan discussed with patient Plan discussed with Dr. Moss Plan discussed with: Patient, Other (RN) My Orders My Orders Orders - ROGER FAITH Procedure Category Date Status Time Insulin Lantus PHA 07/20/24 In Process (Glargine) (Lantus) 08:00 Date of Service: Jul 20, 2024 Billing Provider: CAS MOSS MD Common Visit Codes: [id number] INP/OBS CARE(HIGH) ROGER FAITH Jul 20, 2024 19:37 CAS MOSS MD Jul 25, 2024 11:08
[2024-07-21] VITALS (8 sets, daily range): BP systolic 130–152; BP diastolic 75–90; PULSE 75–88; RESP 17–20; TEMP 98–98.4; O2SAT 91–97
[2024-07-21 06:39] LABS: Potassium 4.4 mmol/L (3.5-5.1); Sodium 143 mmol/L (136-145)
[2024-07-21 06:40] LABS: Anion Gap 11 (5-15); Calcium 9.4 mg/dL (8.7-10.4); Carbon Dioxide 21 mmol/L (20-31)
[2024-07-21 06:43] LABS: Chloride 111 mmol/L (98-107)
[2024-07-21 06:46] LABS: BUN/Creatinine Ratio 10.1 (10.0-20.0)
[2024-07-21 06:52] LABS: Blood Urea Nitrogen 25 mg/dL (9-23); Glucose 225 mg/dL (74-106)
[2024-07-21 07:08] LABS: Hematocrit 30.2 % (36.0-46.0); Hemoglobin 9.9 g/dL (12.2-16.2); Mean Corpuscular Hemoglobin 29.6 pg (28.0-32.0); Mean Corpuscular Hgb Conc. 32.9 g/dL (32.0-36.0); Mean Corpuscular Volume 89.9 fL (80.0-100.0); Platelet Count (auto) 240 10^3/uL (140-450); Red Blood Cells 3.35 10^6/uL (4.0-5.20); Red Cell Distribution Width 14.6 % (11.8-14.3); White Blood Cell 3.1 10^3/uL (4.4-10.8)
[2024-07-21 07:11] LABS: Basophils % (manual) 0 (0.0-2.0); Blast Cells 0; Metamyelocytes % 0; Myelocytes % 0; Promyelocytes % 0; Reactive Lymphocytes 0
[2024-07-21 08:57] LABS: Band Neutrophils % (manual) 3; Eosinophils % (manual) 5 (0-7); Lymphocytes % (manual) 37 (10.0-50.0); Monocytes % (manual) 13 (0-12); Platelet Estimate Adequate
--- NOTE | 2024-07-21 09:39 | DVHDSRES ---
Discharge Summary Date of Admission Resident Creating Document: ROGER FAITH RESIDENT Jul 18, 2024 at 21:32 Date of Discharge: Jul 21, 2024 Admitting Diagnosis pneumonia Labs/Diagnostic Data: Laboratory Results Test 07/21/24 05:11 07/20/24 11:14 07/19/24 12:04 07/19/24 04:56 White Blood Count 3.1 10^3/uL (4.4-10.8) Red Blood Count 3.35 10^6/uL (4.0-5.20) Hemoglobin 9.9 g/dL (12.2-16.2) Hematocrit 30.2 % (36.0-46.0) Mean Corpuscular Volume 89.9 fL (80.0-100.0) Mean Corpuscular Hemoglobin 29.6 pg (28.0-32.0) Mean Corpuscular Hemoglobin Concent 32.9 g/dL (32.0-36.0) Red Cell Distribution Width 14.6 % (11.8-14.3) Platelet Count 240 10^3/uL (140-450) Mean Platelet Volume 7.6 fL (6.9-10.8) Neutrophils (%) (Auto) % (37.0-80.0) Lymphocytes (%) (Auto) % (10.0-50.0) Monocytes (%) (Auto) % (0.0-12.0) Basophils (%) (Auto) % (0.0-2.0) Neutrophils # (Auto) 10 ^3/uL (1.6-8.6) Lymphocytes # (Auto) 10 ^3/uL (0.4-5.4) Monocytes # (Auto) 10 ^3/uL (0-1.3) Differential Total Cells Counted 100.0 (100) Neutrophils % (Manual) 42 (37.0-80.0) Band Neutrophils % (Manual) 3 Lymphocytes % (Manual) 37 (10.0-50.0) Monocytes % (Manual) 13 (0-12) Eosinophils % (Manual) 5 (0-7) Basophils % (Manual) 0 (0.0-2.0) Metamyelocytes % (manual) 0 Myelocytes % (Manual) 0 Promyelocytes % (Manual) 0 Blast Cells % (Manual) 0 Reactive Lymphocytes 0 Platelet Estimate Adequate Sodium Level 143 mmol/L (136-145) Potassium Level 4.4 mmol/L (3.5-5.1) Chloride Level 111 mmol/L (98-107) Carbon Dioxide Level 21 mmol/L (20-31) Anion Gap 11 (5-15) Blood Urea Nitrogen 25 mg/dL (9-23) Creatinine 2.48 mg/dL (0.550-1.02) Glomerular Filtration Rate Calc 24 mL/min (>90) BUN/Creatinine Ratio 10.1 (10.0-20.0) Serum Glucose 225 mg/dL (74-106) Calcium Level 9.4 mg/dL (8.7-10.4) POC Glucose 325 mg/dl (70-106) Lactic Acid Level 1.2 mmol/L (0.4-2.0) Random Vancomycin Level 17.8 ug/mL (5-10) Test 07/19/24 02:30 07/18/24 22:57 07/18/24 22:51 07/18/24 17:53 Urine Color Light-yellow (Yellow) Urine Clarity Clear (Clear) Urine pH 6.0 (5.0-9.0) Urine Specific [place] 1.015 (1.001-1.035) Urine Protein 2+ (Negative) Urine Ketones Negative (Negative) Urine Blood 2+ /uL (Negative) Urine Nitrite Negative (Negative) Urine Bilirubin Negative (Negative) Urine Urobilinogen Normal mg/dL (Negative) Urine Leukocyte Esterase Negative /uL (Negative) Urine RBC 13 /hpf (0 - 4) Urine Microscopic WBC 2 /HPF (0-5) Urine Squamous Epithelial Cells Few /hpf (<5) Urine Bacteria Few /hpf (None Seen) Urine Glucose 4+ mg/dL (Normal) Urine Opiates Screen Pos (NEGATIVE) Urine Fentanyl Screen Neg (NEGATIVE) Urine Barbiturates Screen Neg (NEGATIVE) Urine Phencyclidine Screen Neg (NEGATIVE) Urine Amphetamines Screen Neg (NEGATIVE) Urine Benzodiazepines Screen Neg (NEGATIVE) Urine Cocaine Screen Neg (NEGATIVE) Urine Cannabinoids Screen Neg (NEGATIVE) Magnesium Level 1.7 mg/dL (1.6-2.6) D-Dimer, Quantitative 0.42 mg/L FEU (0.0-0.49) Influenza Type A Antigen Negative (Negative) Influenza Type B Antigen Negative (Negative) SARS-CoV-2 Antigen (Rapid) Negative (NEGATIVE) Test 07/18/24 14:41 07/18/24 13:38 Troponin I High Sensitivity 7 ng/L (</=34) Triglycerides Level 101 mg/dL (< 150) Cholesterol Level 159 mg/dL (< 200) LDL Cholesterol 71 mg/dL (< 100) HDL Cholesterol 72 mg/dL (40-59) Eosinophils (%) (Auto) 3.2 % (0.0-7.0) Eosinophils # (Auto) 0.1 10 ^3/uL (0-0.8) Basophils # (Auto) 0 10 ^3/uL (0-0.2) Nucleated Red Blood Cells 0.1 % Total Bilirubin 1.1 mg/dL (0.2-1.0) Aspartate Amino Transferase (AST) 55 U/L (13-40) Alanine Aminotransferase (ALT) 124 U/L (7-40) Alkaline Phosphatase 155 U/L (46-116) B-Type Natriuretic Peptide 27.95 pg/mL (0-100) Total Protein 6.9 g/dL (5.7-8.2) Albumin 4.9 g/dL (3.2-4.8) Beta HCG, Quantitative 1.0 mIU/mL (1.5-4.2) Other Laboratory Tests 07/21/24 05:11 Brief Hx & Hospital Course: Patient is a 43-year-old female with past medical history of multiple myeloma on chemotherapy Revlimid, hypertension, diabetes, CKD stage 4, came in due to shortness of breaths and conjunctivitis. According to the patient, she has been feeling flu-like symptoms for the past 6 days and notes having sick contacts 2 weeks ago. Patient went to the urgent care for left eye conjunctivitis where a chest x-ray was obtained and patient was noted to have pneumonia and she was subsequently sent to the ER. Patient also notes having 7 episodes of vomiting over the past 4 days. CXR in the urgent care showed low lung volumes. Patchy opacity in the left lung base may represent atelectasis versus airspace disease. Hospital course: Patient was started on IV azithromycin and IV cefepime along with IV linezolid b.i.d.. Ipratropium and albuterol med nebs were also continued. Patient was given 2.5 L IV NS bolus and then maintained at IV NS at 100 cc/hour. Patient continued to have nausea for which he was medicated with IV Zofran as needed. Renal ultrasound showed the kidneys appear echogenic which may relate to medical renal disease. Patient was also continued on topical erythromycin for bacterial conjunctivitis of the left eye good significantly improved over the course of hospitalization. For her diabetes patient was given 20 units Lantus q.a.m. and a moderate sliding scale of insulin. On the day of discharge, patient appeared well and had stable vital signs, patient noted improved shortness of breaths and improved sore throat. Patient was on room air and denied any active ongoing complaints, shortness of breath, dyspnea or nausea. Her hospital course was uncomplicated. Patient was prescribed erythromycin topical ointment for her eye, levofloxacin 750 mg and linezolid 600 mg b.i.d.. General Appearance: Cooperative. Well developed. Well nourished. NAD Head Exam: Normal inspection. Left eye erythema improving, no purulent drainage Neck Exam: Normal inspection. Non-tender. Normal alignment Pulmonary/Respiratory: Chest non-tender. Clear bilateral breath sounds, no crackles, no wheezing. Cardiovascular/Chest: Regular rate and rhythm. No murmurs. No JVD. Peripheral Pulses: 2+ Radial (R). 2+ Radial (L). 2+ Pedal (R). 2+ Pedal (L) Abdominal Exam: Normal bowel sounds. Soft. normal abdomen, no visible veins, Nontender. No hepatospenomegaly. No masses Ankle Exam: Negative ankle edema Lower extremities: Negative lower extremity edema Neuro/Mental Status: A&O x4. Coherent. Thoughts/Psych: Normal thought pattern. Appropriate mood and affect. Good judgement and insight Skin Exam: Normal inspection. Normal color. Warm. 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 for 5 days Levofloxacin 750 once daily for 5 days Erythromycin ointment for 5 days Discharge Statement: "Patient was advised to return to the ER or call 911 if any headaches, dizziness, shortness of breath, chest pain, abdominal pain, bleeding, fevers, or worsening of medical condition. Patient was counseled about treatment plan, medications, possible side effects, patientverbalized understanding. All questions were answered to the best of my ability. This discharge took greater then 30 minutes in planning, reviewing documentation, counseling the patient, and discussing with other team members." ASSESSMENT ASSESSMENT Assessment Date of Service: Jul 21, 2024 Billing Provider: CAS MOSS MD Common Visit Codes: [id number] DISCH DAY >30min ROGER FAITH RESIDENT Jul 21, 2024 09:39 CAS MOSS MD Jul 25, 2024 11:10
[2024-07-21] MEDS ORDERED: LINE1TAB6 PO (11:46)
[2024-07-21] MEDS ORDERED: ERY05OO OP (11:46)
[2024-07-21] MEDS ORDERED: LEVO750T40 PO (11:46)
== END 2024-07-21 16:40 | disposition home or self-care (01) | DRG 720 ==
LOC: ER 13:05 → OVERFLOW 21:32 → WEST WING 07-19 16:10
PROVIDERS: ADMIT Student in an Organized Health Care Education/Training Program; ATTEND Emergency Medicine
DX: A41.50 Gram-negative sepsis, unspecified (principal); J96.01 Acute respiratory failure with hypoxia; J15.69 Pneumonia due to other Gram-negative bacteria; N17.9 Acute kidney failure, unspecified; J15.9 Unspecified bacterial pneumonia; N18.4 Chronic kidney disease, stage 4 (severe); I12.9 Hypertensive chronic kidney disease with stage 1 through stage 4 chronic kidney disease, or unspecified chronic kidney disease; E11.22 Type 2 diabetes mellitus with diabetic chronic kidney disease; G89.29 Other chronic pain; Z20.822 Contact with and (suspected) exposure to COVID-19; M54.9 Dorsalgia, unspecified; H10.89 Other conjunctivitis; R74.01 Elevation of levels of liver transaminase levels; Z85.79 Personal history of other malignant neoplasms of lymphoid, hematopoietic and related tissues; Z79.1 Long term (current) use of non-steroidal anti-inflammatories (NSAID); Z79.899 Other long term (current) drug therapy
CPT/HCPCS: 36415; 76775; 80048; 80053; 80061; 80202; 80307; 81001; 82565; 82962; 83605; 83735; 83880; 84484; 84702; 85007; 85025; 85027; 85379; 87040; 87070; 87086; 87205; 87426; 87804; 94640; 96365; 96375; 99291; G0378; J1815; J2405; J2543

== ENCOUNTER → 2024-07-18 | Outpatient (CLI) | payer MEDICAID ==
[~2024-07-18] MED LIST changes: +INSUINJ7 SC; +LISI2.5T47; +METO25TA93; +PANT40T
[2024-07-18 11:12] LABS: Hematocrit 36.5 % (36.0-46.0); Hemoglobin 12.2 g/dL (12.2-16.2); Mean Corpuscular Hemoglobin 29.8 pg (28.0-32.0); Mean Corpuscular Hgb Conc. 33.5 g/dL (32.0-36.0); Platelet Count (auto) 224 10^3/uL (140-450); Red Cell Distribution Width 15.1 % (11.8-14.3); White Blood Cell 3.6 10^3/uL (4.4-10.8)
[2024-07-18 11:16] LABS: Urine Bacteria FEW /hpf (None Seen); Urine Blood 3+ /uL (Negative); Urine Clarity Clear (Clear); Urine Color Light-Yellow (Yellow); Urine Protein, UAD 3+ (Negative); Urine Specific Gravity 1.017 (1.001-1.035); Urine Squamous Epithelial Cell FEW /hpf (<5); Urine Urobilinogen Normal (Negative); Urine WBC 1 /HPF (0-5)
[2024-07-18 11:22] LABS: Basophils % (manual) 0 (0.0-2.0); Blast Cells 0; Metamyelocytes % 0; Myelocytes % 0; Promyelocytes % 0; Reactive Lymphocytes 0
[2024-07-18 11:51] LABS: Anion Gap 12 (5-15); BUN/Creatinine Ratio 10.7 (10.0-20.0); Calcium 9.6 mg/dL (8.7-10.4); Carbon Dioxide 22 mmol/L (20-31); Chloride 104 mmol/L (98-107); Potassium 4.2 mmol/L (3.5-5.1); Sodium 138 mmol/L (136-145)
[2024-07-18 11:52] LABS: Total Protein 7.3 g/dL (5.7-8.2)
[2024-07-18 11:54] LABS: Creatinine, Urine 128.93 mg/dL (30.0-125.0)
[2024-07-18 11:58] LABS: Alanine Aminotransferase 117 U/L (7-40); Albumin 4.9 g/dL (3.2-4.8); Alkaline Phosphatase 146 U/L (46-116); Aspartate Aminotransferase 61 U/L (13-40); Blood Urea Nitrogen 29 mg/dL (9-23); Glucose 136 mg/dL (74-106)
[2024-07-18 12:31] LABS: Anisocytosis Slight; Band Neutrophils % (manual) 6; Eosinophils % (manual) 3 (0-7); Lymphocytes % (manual) 37 (10.0-50.0); Monocytes % (manual) 22 (0-12); Platelet Estimate Adequate
== END | disposition home or self-care (01) ==
LOC: LAB 10:28
PROVIDERS: ATTEND Internal Medicine
DX: I12.9 Hypertensive chronic kidney disease with stage 1 through stage 4 chronic kidney disease, or unspecified chronic kidney disease (principal); E11.22 Type 2 diabetes mellitus with diabetic chronic kidney disease; N18.4 Chronic kidney disease, stage 4 (severe); C90.00 Multiple myeloma not having achieved remission; N25.81 Secondary hyperparathyroidism of renal origin; D63.1 Anemia in chronic kidney disease; R00.1 Bradycardia, unspecified; Z79.4 Long term (current) use of insulin
CPT/HCPCS: 36415; 80053; 81001; 82043; 82570; 83036; 84702; 85007; 85027

== ENCOUNTER → 2024-08-02 | Outpatient (CLI) | payer MEDICAID ==
[~2024-08-02] MED LIST changes: +ERY05OO OP; +INSUINJ7 SC; +LEVO750T40 PO; +LINE1TAB6 PO; +LISI2.5T47; +METO25TA93; +PANT40T
== END | disposition home or self-care (01) ==
LOC: LAB 12:24
PROVIDERS: ATTEND Internal Medicine
DX: C90.01 Multiple myeloma in remission (principal)
CPT/HCPCS: 36415; 84702

== ENCOUNTER → 2024-08-30 | Outpatient (CLI) | payer MEDICAID | END | disposition home or self-care (01) | LOC: LAB 11:25 | PROVIDERS: ATTEND Internal Medicine | DX: C90.01 Multiple myeloma in remission (principal) | CPT/HCPCS: 36415; 84702 ==

== ENCOUNTER → 2024-09-13 | Outpatient (CLI) | payer MEDICAID | END | disposition home or self-care (01) | LOC: LAB 10:51 | PROVIDERS: ATTEND Internal Medicine | DX: C90.01 Multiple myeloma in remission (principal) | CPT/HCPCS: 36415; 84702 ==

== ENCOUNTER → 2024-10-11 | Outpatient (CLI) | payer MEDICAID | END | disposition home or self-care (01) | LOC: LAB 11:32 | PROVIDERS: ATTEND Internal Medicine | DX: C90.01 Multiple myeloma in remission (principal) | CPT/HCPCS: 36415; 84702 ==

== ENCOUNTER 2024-10-24 10:25 | Outpatient (CLI) | payer MEDICAID ==
[2024-10-24 10:48] LABS: Basophils # (auto) 0 10 ^3/uL (0-0.2); Basophils % (auto) 0.5 % (0.0-2.0); Eosinophils # (auto) 0.4 10 ^3/uL (0-0.8); Eosinophils % (auto) 7.7 % (0.0-7.0); Hematocrit 37.8 % (36.0-46.0); Hemoglobin 12.8 g/dL (12.2-16.2); Lymphocytes # (auto) 1.7 10 ^3/uL (0.4-5.4); Lymphocytes % (auto) 29.2 % (10.0-50.0); Mean Corpuscular Hemoglobin 30.1 pg (28.0-32.0); Mean Corpuscular Hgb Conc. 33.9 g/dL (32.0-36.0); Mean Corpuscular Volume 88.7 fL (80.0-100.0); Monocytes # (auto) 0.5 10 ^3/uL (0-1.3); Monocytes % (auto) 8.6 % (0.0-12.0); Neutrophils # (auto) 3.1 10 ^3/uL (1.6-8.6); Platelet Count (auto) 246 10^3/uL (140-450); Red Blood Cells 4.26 10^6/uL (4.0-5.20); Red Cell Distribution Width 15.5 % (11.8-14.3); White Blood Cell 5.8 10^3/uL (4.4-10.8)
[2024-10-24 10:59] LABS: Urine Bacteria FEW /hpf (None Seen); Urine Blood 2+ /uL (Negative); Urine Clarity Clear (Clear); Urine Color Light-Yellow (Yellow); Urine Protein, UAD 1+ (Negative); Urine Specific Gravity 1.013 (1.001-1.035); Urine Squamous Epithelial Cell FEW /hpf (<5); Urine Urobilinogen Normal (Negative); Urine WBC 2 /HPF (0-5); Urine pH 5.5 (5.0-9.0)
[2024-10-24 11:09] LABS: Alanine Aminotransferase 27 U/L (7-40); Albumin 4.4 g/dL (3.2-4.8); Anion Gap 9 (5-15); Aspartate Aminotransferase 14 U/L (13-40); BUN/Creatinine Ratio 15.5 (10.0-20.0); Bilirubin, Total 0.7 mg/dL (0.2-1.0); Calcium 9.4 mg/dL (8.7-10.4); Carbon Dioxide 24 mmol/L (20-31); GFR African American 30 mL/min; GFR Non-African American 25 mL/min; Phosphorus 4.8 mg/dL (2.4-5.1); Potassium 4.7 mmol/L (3.5-5.1); Sodium 141 mmol/L (136-145); Total Protein 6.5 g/dL (5.7-8.2); Uric Acid 5.4 mg/dL (3.1-7.8)
[2024-10-24 11:11] LABS: Alkaline Phosphatase 131 U/L (46-116); Blood Urea Nitrogen 36 mg/dL (9-23); Chloride 108 mmol/L (98-107); Glucose 114 mg/dL (74-106)
[2024-10-24 11:16] LABS: Protein, Urine 77.3 mg/dL (1-14)
[2024-10-24 11:19] LABS: Urine Protein/Creatinine Ratio 1.14
== END 2024-10-24 17:00 | disposition home or self-care (01) ==
LOC: LAB 10:25
PROVIDERS: ATTEND Internal Medicine
DX: E11.22 Type 2 diabetes mellitus with diabetic chronic kidney disease (principal); N18.30 Chronic kidney disease, stage 3 unspecified; N39.0 Urinary tract infection, site not specified; E21.3 Hyperparathyroidism, unspecified; E55.9 Vitamin D deficiency, unspecified; M10.9 Gout, unspecified; D63.1 Anemia in chronic kidney disease; R80.9 Proteinuria, unspecified
CPT/HCPCS: 36415; 80053; 80069; 81001; 82043; 82570; 83036; 83970; 84156; 84550; 85025

== ENCOUNTER → 2024-12-09 | Outpatient (CLI) | payer MEDICAID | END | disposition home or self-care (01) | LOC: LAB 13:30 | PROVIDERS: ATTEND Internal Medicine | DX: C90.01 Multiple myeloma in remission (principal) | CPT/HCPCS: 36415; 84702 ==

== ENCOUNTER 2025-01-11 13:57 | Outpatient (CLI) | payer MEDICAID | END 2025-01-11 17:00 | disposition home or self-care (01) | LOC: LAB 13:57 | PROVIDERS: ATTEND Internal Medicine | DX: C90.01 Multiple myeloma in remission (principal) | CPT/HCPCS: 36415; 84702 ==

== ENCOUNTER 2025-01-19 14:00 | Outpatient (CLI) | payer MEDICAID | END 2025-01-19 17:00 | disposition home or self-care (01) | LOC: LAB 14:00 | PROVIDERS: ATTEND Internal Medicine | DX: C90.01 Multiple myeloma in remission (principal); N89.8 Other specified noninflammatory disorders of vagina | CPT/HCPCS: 36415; 84702 ==

== ENCOUNTER 2025-01-25 11:53 | Outpatient (CLI) | payer MEDICAID ==
[2025-01-25 12:19] LABS: Hematocrit 39.8 % (36.0-46.0); Hemoglobin 13.6 g/dL (12.2-16.2); Mean Corpuscular Hemoglobin 30.1 pg (28.0-32.0); Mean Corpuscular Volume 88.2 fL (80.0-100.0); Nucleated Red Blood Cells % 0.0 %
[2025-01-25 12:34] LABS: INR 0.97 (0.9-1.15); Partial Thromboplastin Time 27.1 SEC (24.5-34.5); Prothrombin Time 10.3 sec (9.3-11.8)
== END 2025-01-25 17:00 | disposition home or self-care (01) ==
LOC: LAB 11:53
PROVIDERS: ATTEND Internal Medicine
DX: C90.01 Multiple myeloma in remission (principal)
CPT/HCPCS: 36415; 85025; 85610; 85730

== ENCOUNTER 2025-02-17 10:43 | Outpatient (CLI) | payer MEDICAID ==
[2025-02-17 11:18] LABS: Urine Protein, UAD 1+ (Negative)
[2025-02-17 11:36] LABS: Hematocrit 36.1 % (36.0-46.0); Hemoglobin 12.3 g/dL (12.2-16.2); Mean Corpuscular Hemoglobin 30.1 pg (28.0-32.0); Mean Corpuscular Volume 88.1 fL (80.0-100.0); Nucleated Red Blood Cells % 0.1 %
[2025-02-17 12:00] LABS: Alanine Aminotransferase 35 U/L (7-40); Albumin 4.2 g/dL (3.2-4.8); Anion Gap 10 (5-15); BUN/Creatinine Ratio 13.2 (10.0-20.0); Bilirubin, Total 1.0 mg/dL (0.2-1.0); Calcium 9.2 mg/dL (8.7-10.4); Carbon Dioxide 24 mmol/L (20-31); Potassium 4.3 mmol/L (3.5-5.1); Sodium 144 mmol/L (136-145); Total Protein 6.5 g/dL (5.7-8.2)
[2025-02-17 12:16] LABS: Alkaline Phosphatase 129 U/L (46-116); Blood Urea Nitrogen 36 mg/dL (9-23); Chloride 110 mmol/L (98-107)
[2025-02-17 13:49] LABS: Glucose 113 mg/dL (74-106)
== END 2025-02-17 15:00 | disposition home or self-care (01) ==
LOC: LAB 10:43
PROVIDERS: ATTEND Internal Medicine
DX: C90.01 Multiple myeloma in remission (principal); E11.22 Type 2 diabetes mellitus with diabetic chronic kidney disease; N18.30 Chronic kidney disease, stage 3 unspecified; E11.21 Type 2 diabetes mellitus with diabetic nephropathy; E55.9 Vitamin D deficiency, unspecified; E21.3 Hyperparathyroidism, unspecified; N39.0 Urinary tract infection, site not specified; D63.1 Anemia in chronic kidney disease; M10.9 Gout, unspecified; R80.9 Proteinuria, unspecified
CPT/HCPCS: 36415; 80053; 81001; 82306; 83036; 83970; 84702; 85025

== ENCOUNTER → 2025-03-16 | Outpatient (CLI) | payer MEDICAID | END | disposition home or self-care (01) | LOC: LAB 11:22 | PROVIDERS: ATTEND Physician Assistant Medical | DX: C90.01 Multiple myeloma in remission (principal) | CPT/HCPCS: 36415; 84702 ==

== ENCOUNTER 2025-04-11 10:36 | Outpatient (CLI) | payer MEDICAID | END 2025-04-11 17:00 | disposition home or self-care (01) | LOC: Rad HDHVI 10:36 | PROVIDERS: ATTEND Internal Medicine Cardiovascular Disease | DX: I07.1 Rheumatic tricuspid insufficiency (principal); I10 Essential (primary) hypertension | CPT/HCPCS: 93306 ==

== ENCOUNTER 2025-04-25 09:50 | Outpatient (CLI) | payer MEDICAID ==
[~2025-04-25] VITALS: Ht 160 cm; Wt 106.6 kg
[2025-04-25] MEDS ORDERED: ADENOSINE 90 MG/30 ML INJ IV ONE (10:09)
[2025-04-25] MEDS ORDERED: ADENOSINE 90 MG in GIVE UN-DILUTED 0 ML IV ONE (12:15)
== END 2025-04-25 17:00 | disposition home or self-care (01) ==
LOC: Rad HDHVI 09:50
PROVIDERS: ATTEND Internal Medicine Cardiovascular Disease
DX: I49.1 Atrial premature depolarization (principal); R00.0 Tachycardia, unspecified; R07.89 Other chest pain; R06.02 Shortness of breath; R00.1 Bradycardia, unspecified; I12.9 Hypertensive chronic kidney disease with stage 1 through stage 4 chronic kidney disease, or unspecified chronic kidney disease; N18.4 Chronic kidney disease, stage 4 (severe); E11.22 Type 2 diabetes mellitus with diabetic chronic kidney disease; E11.65 Type 2 diabetes mellitus with hyperglycemia; R94.31 Abnormal electrocardiogram [ECG] [EKG]; R42 Dizziness and giddiness; J45.909 Unspecified asthma, uncomplicated
CPT/HCPCS: 78452; 93017; A9500; J0153

== ENCOUNTER 2025-04-25 12:32 | Outpatient (CLI) | payer MEDICAID ==
[2025-04-25 13:39] LABS: Hematocrit 36.9 % (36.0-46.0); Hemoglobin 12.4 g/dL (12.2-16.2); Mean Corpuscular Hemoglobin 29.9 pg (28.0-32.0); Mean Corpuscular Volume 88.6 fL (80.0-100.0); Nucleated Red Blood Cells % 0.2 %
[2025-04-25 14:33] LABS: Alanine Aminotransferase 36 U/L (7-40); Albumin 4.4 g/dL (3.2-4.8); Anion Gap 11 (5-15); BUN/Creatinine Ratio 12.7 (10.0-20.0); Bilirubin, Total 0.9 mg/dL (0.2-1.0); Calcium 9.3 mg/dL (8.7-10.4); Carbon Dioxide 24 mmol/L (20-31); Cholesterol 139 mg/dL (< 200); Glucose 75 mg/dL (74-106); HDL Cholesterol 57 mg/dL (40-59); Potassium 4.2 mmol/L (3.5-5.1); Total Protein 6.9 g/dL (5.7-8.2); Triglycerides 94 mg/dL (< 150)
[2025-04-25 14:34] LABS: Alkaline Phosphatase 143 U/L (46-116); Blood Urea Nitrogen 29 mg/dL (9-23); Chloride 111 mmol/L (98-107); Sodium 146 mmol/L (136-145); Thyroid Stimulating Hormone 2.31 uIU/mL (0.55-4.78)
[2025-04-25 14:35] LABS: Beta HCG, Quantitative 1.2 mIU/mL (1.5-4.2)
[2025-04-26 10:07] LABS: Immunoglobulin A 249 mg/dL (87-352); Immunoglobulin G, Serum 589 mg/dL (586-1602); Immunoglobulin M 16 mg/dL (26-217)
[2025-04-26 14:07] LABS: Kappa Lite Chain Free Serum 49.1 mg/L (3.3-19.4)
[2025-04-27 13:07] LABS: Albumin 3.7 g/dL (2.9-4.4); Alpha-1-Globulin 0.2 g/dL (0.0-0.4); Alpha-2-Globulin 0.8 g/dL (0.4-1.0); Gamma Globulin 0.5 g/dL (0.4-1.8)
== END 2025-04-25 17:00 | disposition home or self-care (01) ==
LOC: LAB 12:32
PROVIDERS: ATTEND Nurse Practitioner Family
DX: C90.01 Multiple myeloma in remission (principal); I10 Essential (primary) hypertension; E11.65 Type 2 diabetes mellitus with hyperglycemia; Z00.01 Encounter for general adult medical examination with abnormal findings
CPT/HCPCS: 36415; 80053; 80061; 82043; 82232; 82570; 82672; 82784; 83036; 83521; 84155; 84165; 84443; 84702; 85025; 86334